=== PATIENT | female | born 1970 | race Caucasian/White ===

== ENCOUNTER → 2016-08-30 | Outpatient (CLI) | payer BC ==
[2016-04-07 08:28] VITALS: BP 93/53
[2016-08-30 07:14] LABS: BASOPHILS % (AUTO) 0.5 % (0.2-1.0); EOSINOPHILS # (AUTO) 0.1 x10^3/uL (0.0-0.2); EOSINOPHILS % (AUTO) 1.8 % (0.9-2.9); HEMOGLOBIN 12.9 g/dL (12.0-16.0); LYMPHOCYTES # (AUTO) 1.9 X10^3/uL (1.3-2.9); LYMPHOCYTES % (AUTO) 35.8 % (21.0-51.0); MEAN CORPUSCULAR HEMOGLOBIN 31.8 pg (27.0-34.0); MEAN CORPUSCULAR HGB CONC 34.7 g/dL (33.0-35.0); MEAN CORPUSCULAR VOLUME 91.6 fL (80.0-100.0); MEAN PLATELET VOLUME 7.8 fL (7.4-11.0); MONOCYTES # (AUTO) 0.3 x10^3/uL (0.3-0.8); MONOCYTES % (AUTO) 6.3 % (0.0-13.0); NEUTROPHILS % (AUTO) 55.6 % (42.0-75.0); PLATELET COUNT 239 X10^3/uL (150.0-450.0); RED BLOOD COUNT 4.04 X10^6/uL (3.5-5.4); WHITE BLOOD COUNT 5.4 X10^3/uL (3.6-10.0)
[2016-08-30 07:21] LABS: ALANINE AMINOTRANSFERASE 35 Units/L (12-78); ALBUMIN 3.4 g/dL (3.4-5.0); ALKALINE PHOSPHATASE 85 Units/L (46-116); ASPARTATE AMINO TRANSFERASE 28 Units/L (15-37); BILIRUBIN,DIRECT 0.12 mg/dL (0-0.2); BLOOD UREA NITROGEN 16 mg/dL (7-18); CALCIUM 8.7 mg/dL (8.5-10.1); CARBON DIOXIDE 27.1 mmol/L (21-32); CHLORIDE 107 mmol/L (98-107); CHOL/HDL RATIO 2.3 (0.0-5.0); CHOLESTEROL 156 mg/dL (0-200); COR NA(FOR HYPERGLY) 141 mmol/L (136-145); CREATININE 0.81 mg/dL (0.55-1.02); GLUCOSE 200 mg/dL (65-99); HDL CHOLESTEROL 67 mg/dL (40-60); SODIUM 139 mmol/L (136-145); TOTAL PROTEIN 6.7 g/dL (6.4-8.2); TRIGLYCERIDES 27 mg/dL (0-150); eGFR BLACK RACES > 60 (>60); eGFR NON BLACK RACES > 60 (>60)
== END ==
LOC: LAB 06:30
PROVIDERS: ATTEND Internal Medicine Cardiovascular Disease
DX: E78.4 Other hyperlipidemia (principal)
CPT/HCPCS: 36415; 80048; 80061; 80076; 85025

== ENCOUNTER → 2016-09-06 | Outpatient (CLI) | payer BC ==
[2016-04-07 08:28] VITALS: BP 93/53
[2016-09-06 10:02] LABS: BASOPHILS % (AUTO) 0.5 % (0.2-1.0); EOSINOPHILS # (AUTO) 0.2 x10^3/uL (0.0-0.2); EOSINOPHILS % (AUTO) 3.6 % (0.9-2.9); HEMATOCRIT 37.3 % (36.0-47.0); HEMOGLOBIN 12.8 g/dL (12.0-16.0); LYMPHOCYTES # (AUTO) 1.8 X10^3/uL (1.3-2.9); LYMPHOCYTES % (AUTO) 34.1 % (21.0-51.0); MEAN CORPUSCULAR HEMOGLOBIN 31.7 pg (27.0-34.0); MEAN CORPUSCULAR HGB CONC 34.4 g/dL (33.0-35.0); MEAN CORPUSCULAR VOLUME 92.2 fL (80.0-100.0); MEAN PLATELET VOLUME 7.7 fL (7.4-11.0); MONOCYTES # (AUTO) 0.4 x10^3/uL (0.3-0.8); MONOCYTES % (AUTO) 7.2 % (0.0-13.0); NEUTROPHILS # (AUTO) 2.8 x10^3/uL (2.2-4.8); NEUTROPHILS % (AUTO) 54.6 % (42.0-75.0); PLATELET COUNT 207 X10^3/uL (150.0-450.0); RED BLOOD COUNT 4.04 X10^6/uL (3.5-5.4); WHITE BLOOD COUNT 5.2 X10^3/uL (3.6-10.0)
[2016-09-06 10:11] LABS: ALANINE AMINOTRANSFERASE 27 Units/L (12-78); ALBUMIN 3.4 g/dL (3.4-5.0); ALKALINE PHOSPHATASE 82 Units/L (46-116); ASPARTATE AMINO TRANSFERASE 19 Units/L (15-37); BILIRUBIN,DIRECT 0.09 mg/dL (0-0.2); BLOOD UREA NITROGEN 21 mg/dL (7-18); CALCIUM 8.7 mg/dL (8.5-10.1); CARBON DIOXIDE 30.9 mmol/L (21-32); CHLORIDE 108 mmol/L (98-107); CHOL/HDL RATIO 2.7 (0.0-5.0); CHOLESTEROL 167 mg/dL (0-200); CREATININE 0.72 mg/dL (0.55-1.02); GLUCOSE 89 mg/dL (65-99); HDL CHOLESTEROL 62 mg/dL (40-60); SODIUM 143 mmol/L (136-145); TOTAL PROTEIN 6.7 g/dL (6.4-8.2); TRIGLYCERIDES 58 mg/dL (0-150); eGFR BLACK RACES > 60 (>60); eGFR NON BLACK RACES > 60 (>60)
== END ==
LOC: LAB 09:38
PROVIDERS: ATTEND Physician Assistant
DX: E78.4 Other hyperlipidemia (principal)
CPT/HCPCS: 36415; 80048; 80061; 80076; 85025

== ENCOUNTER 2021-08-24 11:00 | Observation (INO) ==
[2021-08-24 12:35] LABS: BASOPHILS % (AUTO) 0.4 % (0.2-1.0); EOSINOPHILS % (AUTO) 0.8 % (0.9-2.9); HEMOGLOBIN 13.2 g/dL (12.0-16.0); LYMPHOCYTES # (AUTO) 0.5 X10^3/uL (1.3-2.9); LYMPHOCYTES % (AUTO) 10.3 % (21.0-51.0); MEAN CORPUSCULAR HGB CONC 34.6 g/dL (33.0-35.0); MEAN CORPUSCULAR VOLUME 92.4 fL (80.0-100.0); MEAN PLATELET VOLUME 7.5 fL (7.4-11.0); MONOCYTES # (AUTO) 0.4 x10^3/uL (0.3-0.8); MONOCYTES % (AUTO) 10.1 % (0.0-13.0); NEUTROPHILS # (AUTO) 3.4 x10^3/uL (2.2-4.8); NEUTROPHILS % (AUTO) 78.4 % (42.0-75.0); RED BLOOD COUNT 4.12 X10^6/uL (3.5-5.4); RED CELL DISTRIBUTION WIDTH 12.2 % (11.6-16.5); WHITE BLOOD COUNT 4.4 X10^3/uL (3.6-10.0)
[2021-08-24] MEDS ORDERED: TUSSIONEX PENNKINETIC SUSP PO PRN (12:39)
[2021-08-24] MEDS ORDERED: NovoLIN R (or HumuLIN R) SUBCUT PRN (12:41)
[2021-08-24] MEDS: NS 1,000 ML IV 1,000 ML IV SCH (12:45)
[2021-08-24 12:47] LABS: ALANINE AMINOTRANSFERASE 29 Units/L (12-78); ALBUMIN 3.5 g/dL (3.4-5.0); ALKALINE PHOSPHATASE 92 Units/L (46-116); ASPARTATE AMINO TRANSFERASE 26 Units/L (15-37); BLOOD UREA NITROGEN 6 mg/dL (7-18); CALCIUM 8.3 mg/dL (8.5-10.1); CARBON DIOXIDE 28.6 mmol/L (21-32); CHLORIDE 105 mmol/L (98-107); COR NA(FOR HYPERGLY) 141 mmol/L (136-145); CREATININE 0.79 mg/dL (0.55-1.02); SODIUM 139 mmol/L (136-145); TOTAL PROTEIN 6.6 g/dL (6.4-8.2); eGFR NON BLACK RACES > 60 (>60)
[2021-08-24 12:51] LABS: ABG ALLEN TEST POS; ABG BASE EXCESS 3.7 mmol/L (-2.0-2.0); ABG HCO3 27.7 mmol/L (22-26)
[2021-08-24] MEDS ORDERED: REMDESIVIR 200 MG in NS 250 ML IV 250 ML IV ONE (13:00)
[2021-08-24] MEDS: ZITHROMAX INJ 500 MG VIAL 500 MG in NS 250 ML IV 250 ML IV SCH (13:36)
[2021-08-24] MEDS: ROBITUSSIN DM PO SCH ×3 (13:36→20:49)
[2021-08-24 13:50] VITALS: BMI 37.8
--- NOTE | 2021-08-24 13:55 | DR.H&P ---
H&P - History & Physical for Day of: H&P Date: 08/24/21 - Chief Complaint Chief Complaint: COVID POSITIVE, FEVER, UNCONTROLLED SUGAR, WEAKNESS - History of Present Illness History of Present Illness: PT IS 51 WF DIRECT ADMIT FROM DR KELLER OFFICE WITH COVID 19, FEVER ONSET TUESDAY. PT IS TYPE I, USING INSULIN PUMP, REPORTS UNCONTROLLED SUGAR AND WEAKNESS. PT REPORTS POOR APPETITE. PT TEMP 101 IN OFFICE. PT ADMITTED FOR TREATMENT OF ACUTE ILLNESS. - Past Medical History Past Medical History: Diabetes, Depression, Anxiety - Past Surgical History Surgical History: Cholecystectomy, Hysterectomy - Family History Family Medical History: Diabetes Mellitus - Social History Does patient currently use any type of tobacco product: No Have you used tobacco products in the last 12 months: No Type of Tobacco Use: None Does any household member use tobacco: No Alcohol Use: None Drug Use: None Risks, benefits, and alternatives of opioids discussed: No - Medications Home Medications: promethazine Allergy (Verified 01/30/19 04:03) - Review of Systems Constitutional: Fever, Chills, Sweats, Weakness, Malaise Eyes: Vision Change (CHRONIC VISION IMPAIRMENT) Respiratory: Cough, Wheezing Cardiovascular: No Symptoms Reported Gastrointestinal: Nausea, Diarrhea Genitourinary: No Symptoms Reported Musculoskeletal: Back Pain, Leg Pain, Neck Pain Skin: No Symptoms Reported Neurological: No Symptoms Reported - Physical Exam Vital Signs: Respiratory Rate 20 Blood Pressure [Right Arm] 129/72 Blood Pressure 129/72 O2 Sat by Pulse Oximetry 96 Oriented: Normal Eyes: Normal Ear: Normal Nose: Normal Throat: Normal Respiratory: RLL Diminished, LLL Diminished Cardiovascular: Normal : Normal Auscultation: Bowel Sounds: Normal Palpation: Normal Tenderness: Normal Skin: Decreased Turgur Musculoskeletal: Normal Psychiatric: Anxiety Affect: Angry Speech Pattern: Clear, Appropriate - Assessment/Plan (1) COVID-19 Status: Acute Plan: ADMIT, IV HYDRATION. IV REMDESIVIR. IV ZITHROMAX, BS CONTROL. CXR AND ABG ON ADMISSION. VERIFY HOME MEDICATION (2) Anxiety Status: Chronic (3) Diabetes mellitus type 1 Status: Chronic (4) GERD (gastroesophageal reflux disease) Status: Chronic - Allergies Allergies/Adverse Reactions: Allergies Allergy/AdvReac Type Severity Reaction Status Date / Time promethazine Allergy Verified 01/30/19 04:03
[2021-08-24 14:00] LABS: BILIRUBIN,URINE NEGATIVE (NEGATIVE); BLOOD/HEMOGLOBIN,URINE 1+ (NEGATIVE); GLUCOSE, URINE NEGATIVE (NEGATIVE); KETONES,URINE 1+ (NEGATIVE); LEUKOCYTE ESTERASE ,URINE 1+ (NEGATIVE); NITRITES,URINE NEGATIVE (NEGATIVE); PROTEIN,URINE NEGATIVE (NEGATIVE); UROBILINOGEN,URINE NORMAL (NORMAL)
[2021-08-24 14:04] LABS: APPEARANCE,URINE CLEAR (CLEAR); BACTERIA,URINE TRACE /HPF (NEGATIVE); COLOR,URINE PALE YELLOW (YELLOW); SQUAMOUS EPITHELIAL CELL,UR FEW /HPF (NEGATIVE)
[2021-08-24] MEDS ORDERED: TYLENOL 325 MG TAB PO PRN (16:32)
--- NOTE | 2021-08-24 18:53 | RAD ---
HISTORYCOVID +, COUGH Relevant Clinical InformationSTUDYCHEST, 1 VIEWCOMPARISONFINDINGSThe trachea is midline. The cardiac silhouette is unremarkable. The lungs are clear without focal infiltrate or effusion. The bony thorax is unremarkable.IMPRESSIONNo acute cardiopulmonary findings .Electronically signed by: Felipe Neville (Aug 24, 2021 18:52:04)
[2021-08-24] MEDS: PULMICORT NEB TX 0.5 MG NEB SCH (20:49)
[2021-08-24] MEDS: BROVANA IN SCH (20:49)
[2021-08-24] MEDS: SNACK - Diabetic Appropriate PO SCH (21:23)
[2021-08-25] MEDS: NS 1,000 ML IV 1,000 ML IV SCH ×2 (01:48→16:08)
[2021-08-25 05:45] LABS: BASOPHILS % (AUTO) 0.5 % (0.2-1.0); EOSINOPHILS % (AUTO) 0.9 % (0.9-2.9); HEMATOCRIT 36.3 % (36.0-47.0); HEMOGLOBIN 12.7 g/dL (12.0-16.0); LYMPHOCYTES # (AUTO) 1.2 X10^3/uL (1.3-2.9); LYMPHOCYTES % (AUTO) 35.7 % (21.0-51.0); MEAN CORPUSCULAR HEMOGLOBIN 32.3 pg (27.0-34.0); MEAN CORPUSCULAR VOLUME 92.4 fL (80.0-100.0); MEAN PLATELET VOLUME 7.5 fL (7.4-11.0); MONOCYTES # (AUTO) 0.5 x10^3/uL (0.3-0.8); MONOCYTES % (AUTO) 15.8 % (0.0-13.0); NEUTROPHILS # (AUTO) 1.5 x10^3/uL (2.2-4.8); NEUTROPHILS % (AUTO) 47.1 % (42.0-75.0); RED BLOOD COUNT 3.93 X10^6/uL (3.5-5.4); RED CELL DISTRIBUTION WIDTH 12.2 % (11.6-16.5); WHITE BLOOD COUNT 3.3 X10^3/uL (3.6-10.0)
[2021-08-25 05:46] LABS: ALANINE AMINOTRANSFERASE 25 Units/L (12-78); ALBUMIN 3.2 g/dL (3.4-5.0); ALKALINE PHOSPHATASE 83 Units/L (46-116); ASPARTATE AMINO TRANSFERASE 22 Units/L (15-37); BLOOD UREA NITROGEN 9 mg/dL (7-18); CALCIUM 8.2 mg/dL (8.5-10.1); CARBON DIOXIDE 27.9 mmol/L (21-32); CHLORIDE 107 mmol/L (98-107); COR CA(FOR HYPOALB) 8.8 mg/dL (8.5-10.1); CREATININE 0.66 mg/dL (0.55-1.02); SODIUM 140 mmol/L (136-145); TOTAL PROTEIN 6.2 g/dL (6.4-8.2); eGFR NON BLACK RACES > 60 (>60)
[2021-08-25] MEDS: BROVANA IN SCH ×2 (09:40→21:00)
[2021-08-25] MEDS: PULMICORT NEB TX 0.5 MG NEB SCH ×2 (09:41→21:00)
[2021-08-25] MEDS: REMDESIVIR 100 MG in NS 250 ML IV 250 ML IV SCH (09:45)
[2021-08-25] MEDS: ROBITUSSIN DM PO SCH ×4 (09:45→20:59)
[2021-08-25] MEDS: ZITHROMAX INJ 500 MG VIAL 500 MG in NS 250 ML IV 250 ML IV SCH (09:45)
[2021-08-25] MEDS: LOVENOX INJ 40 MG SYR SC SCH (09:46)
[2021-08-25] MEDS ORDERED: D50W ABBOJECT SYR IV ONE (11:09)
--- NOTE | 2021-08-25 13:27 | PCM.PROG ---
Progress Note - Subjective Subjective: Patient was admitted as per HPI. Patient reports improvement in symptoms in yesterday but continues to have weakness and wheezing. No new concerns at present. Plan for dc home in am. - Past Medical Family Social History Past Med/Fam/Surg Hx: No changes since H&P Allergies: Allergies promethazine Allergy (Verified 01/30/19 04:03) - Review of Systems ROS: No change since H&P - Vital Signs and I&O's Vital Signs: Temperature 98.5 F Pulse Rate [Apical] 80 Pulse Rate 71 Respiratory Rate 18 Blood Pressure [Left Arm] 112/56 Blood Pressure [Right Arm] 116/51 Blood Pressure 129/72 O2 Sat by Pulse Oximetry 96 Intake and Output: Intake & Output 08/22/21 08/23/21 08/24/21 08/25/21 23:59 23:59 23:59 23:59 Intake Total 279 / 279 673 / 673 Balance 279 / 279 673 / 673 - Physical Exam Oriented: Normal Eyes: Normal Ear: Normal Nose: Normal Throat: Normal Respiratory: Generalized, Wheezes Cardiovascular: Normal : Normal Auscultation: Bowel Sounds: Normal Palpation: Normal Tenderness: Normal Skin: Decreased Turgur Musculoskeletal: Normal Psychiatric: Normal Mood Description: Calm Affect: Normal Speech Pattern: Clear, Appropriate - Laboratory and Diagnostics Result Diagrams: 08/25/21 04:59 08/25/21 04:59 Labs: Laboratory WBC 3.3 X10^3/uL (3.6-10.0) L 08/25/21 04:59 RBC 3.93 X10^6/uL (3.5-5.4) 08/25/21 04:59 Hgb 12.7 g/dL (12.0-16.0) 08/25/21 04:59 Hct 36.3 % (36.0-47.0) 08/25/21 04:59 MCV 92.4 fL (80.0-100.0) 08/25/21 04:59 MCH 32.3 pg (27.0-34.0) 08/25/21 04:59 MCHC 35.0 g/dL (33.0-35.0) 08/25/21 04:59 RDW 12.2 % (11.6-16.5) 08/25/21 04:59 Plt Count 160 X10^3/uL (150.0-450.0) 08/25/21 04:59 MPV 7.5 fL (7.4-11.0) 08/25/21 04:59 Neut % (Auto) 47.1 % (42.0-75.0) 08/25/21 04:59 Lymph % (Auto) 35.7 % (21.0-51.0) 08/25/21 04:59 [place] % (Auto) 15.8 % (0.0-13.0) H 08/25/21 04:59 Eos % (Auto) 0.9 % (0.9-2.9) 08/25/21 04:59 Baso % (Auto) 0.5 % (0.2-1.0) 08/25/21 04:59 Neut # (Auto) 1.5 x10^3/uL (2.2-4.8) L 08/25/21 04:59 Lymph # (Auto) 1.2 X10^3/uL (1.3-2.9) L 08/25/21 04:59 [place] # (Auto) 0.5 x10^3/uL (0.3-0.8) 08/25/21 04:59 Eos # (Auto) 0.0 x10^3/uL (0.0-0.2) 08/25/21 04:59 Baso # (Auto) 0.0 X10^3/uL (0.0-0.1) 08/25/21 04:59 Absolute Nucleated RBC 0.1 /100WBC 08/25/21 04:59 Sample Site Rr 08/24/21 12:45 ABG pH 7.460 (7.35-7.45) H 08/24/21 12:45 ABG pCO2 39.0 mmHg (35.0-45.0) 08/24/21 12:45 ABG pO2 78.0 mmHg (80.0-100.0) L 08/24/21 12:45 ABG HCO3 27.7 mmol/L (22-26) H 08/24/21 12:45 ABG O2 Saturation 96.0 % (90-100) 08/24/21 12:45 ABG Base Excess 3.7 mmol/L (-2.0-2.0) H 08/24/21 12:45 Gasper Test Pos 08/24/21 12:45 A-a Gradient 23.0 mmHg 08/24/21 12:45 FiO2 21.0 08/24/21 12:45 Blood Gas Comments Pt saige well cdn 08/24/21 12:45 Sodium 140 mmol/L (136-145) 08/25/21 04:59 Corrected Sodium TNP 08/25/21 04:59 Potassium 3.9 mmol/L (3.5-5.1) 08/25/21 04:59 Chloride 107 mmol/L (98-107) 08/25/21 04:59 Carbon Dioxide 27.9 mmol/L (21-32) 08/25/21 04:59 BUN 9 mg/dL (7-18) 08/25/21 04:59 Creatinine 0.66 mg/dL (0.55-1.02) 08/25/21 04:59 Est GFR (MDRD) Af Amer > 60 (>60) 08/25/21 04:59 Est GFR (MDRD) Non-Af > 60 (>60) 08/25/21 04:59 Glucose 91 mg/dL (65-99) 08/25/21 04:59 POC Glucose (mg/dL) 65 mg/dL (65-99) 08/25/21 11:02 Calcium 8.2 mg/dL (8.5-10.1) L 08/25/21 04:59 Corrected Calcium 8.8 mg/dL (8.5-10.1) 08/25/21 04:59 Total Bilirubin 0.80 mg/dL (0.2-1.0) 08/25/21 04:59 AST 22 Units/L (15-37) 08/25/21 04:59 ALT 25 Units/L (12-78) 08/25/21 04:59 Alkaline Phosphatase 83 Units/L (46-116) 08/25/21 04:59 Total Protein 6.2 g/dL (6.4-8.2) L 08/25/21 04:59 Albumin 3.2 g/dL (3.4-5.0) L 08/25/21 04:59 Globulin 3.0 g/dL (2.5-4.5) 08/25/21 04:59 Albumin/Globulin Ratio 1.1 Ratio (1.1-2.1) 08/25/21 04:59 Specimen Type Clean catch urine 08/24/21 13:30 Urine Color Pale yellow (YELLOW) 08/24/21 13:30 Urine Appearance Clear (CLEAR) 08/24/21 13:30 Urine pH 7.0 (5.0 - 8.0) 08/24/21 13:30 Ur Specific [place] 1.005 (1.000-1.030) 08/24/21 13:30 Urine Protein Negative (NEGATIVE) 08/24/21 13:30 Urine Glucose (UA) Negative (NEGATIVE) 08/24/21 13:30 Urine Ketones 1+ (NEGATIVE) 08/24/21 13:30 Urine Blood 1+ (NEGATIVE) 08/24/21 13:30 Urine Nitrite Negative (NEGATIVE) 08/24/21 13:30 Urine Bilirubin Negative (NEGATIVE) 08/24/21 13:30 Urine Urobilinogen Normal (NORMAL) 08/24/21 13:30 Ur Leukocyte Esterase 1+ (NEGATIVE) 08/24/21 13:30 Urine RBC 3-5 /HPF (0-3) A 08/24/21 13:30 Urine WBC 3-5 /HPF (0-5) 08/24/21 13:30 Ur Squamous Epith Cells Few /HPF (NEGATIVE) 08/24/21 13:30 Urine Bacteria Trace /HPF (NEGATIVE) 08/24/21 13:30 Ur Culture Indicated? No/not indicated 08/24/21 13:30 SARS-CoV-2 (PCR) Positive (NEGATIVE) A 08/24/21 12:31 - Plan (1) Hypoglycemia Status: Acute (2) COVID-19 Status: Acute Plan: IV HYDRATION. IV REMDESIVIR. IV ZITHROMAX, BS CONTROL. CXR AND ABG ON ADMISSION. VERIFY HOME MEDICATION (3) Diabetes mellitus type 1 Status: Chronic Plan: Home meds (4) GERD (gastroesophageal reflux disease) Status: Chronic
[2021-08-25] MEDS: SNACK - Diabetic Appropriate PO SCH (21:45)
[2021-08-26 05:22] LABS: ABG BASE EXCESS 2.6 mmol/L (-2.0-2.0); ABG HCO3 27.2 mmol/L (22-26)
[2021-08-26 05:23] LABS: ABG ALLEN TEST POS
[2021-08-26] MEDS: NS 1,000 ML IV 1,000 ML IV SCH (05:27)
[2021-08-26 05:45] LABS: BASOPHILS % (AUTO) 0.7 % (0.2-1.0); EOSINOPHILS # (AUTO) 0.1 x10^3/uL (0.0-0.2); EOSINOPHILS % (AUTO) 2.6 % (0.9-2.9); HEMATOCRIT 35.5 % (36.0-47.0); HEMOGLOBIN 12.3 g/dL (12.0-16.0); LYMPHOCYTES # (AUTO) 1.1 X10^3/uL (1.3-2.9); LYMPHOCYTES % (AUTO) 39.7 % (21.0-51.0); MEAN CORPUSCULAR HEMOGLOBIN 31.8 pg (27.0-34.0); MEAN CORPUSCULAR HGB CONC 34.5 g/dL (33.0-35.0); MEAN CORPUSCULAR VOLUME 92.2 fL (80.0-100.0); MEAN PLATELET VOLUME 7.7 fL (7.4-11.0); MONOCYTES # (AUTO) 0.4 x10^3/uL (0.3-0.8); MONOCYTES % (AUTO) 12.7 % (0.0-13.0); NEUTROPHILS # (AUTO) 1.3 x10^3/uL (2.2-4.8); NEUTROPHILS % (AUTO) 44.3 % (42.0-75.0); RED BLOOD COUNT 3.85 X10^6/uL (3.5-5.4); RED CELL DISTRIBUTION WIDTH 12.1 % (11.6-16.5); WHITE BLOOD COUNT 2.8 X10^3/uL (3.6-10.0)
--- NOTE | 2021-08-26 06:01 | RAD ---
HISTORYCOVID-19STUDYChest AP [id number]/06/2022FINDINGSThe heart is enlarged. The héctor are normal. The lung porter are free of acute infiltrates. No pleural effusions are identified. Bony thorax is unremarkable.IMPRESSIONNo significant abnormality identifiedElectronically signed by: ELIOT MOON (Aug 26, 2021 05:59:22)
[2021-08-26 06:05] LABS: ALANINE AMINOTRANSFERASE 22 Units/L (12-78); ALKALINE PHOSPHATASE 80 Units/L (46-116); ASPARTATE AMINO TRANSFERASE 23 Units/L (15-37); BLOOD UREA NITROGEN 13 mg/dL (7-18); CALCIUM 8.1 mg/dL (8.5-10.1); CARBON DIOXIDE 24.4 mmol/L (21-32); CHLORIDE 104 mmol/L (98-107); COR CA(FOR HYPOALB) 8.9 mg/dL (8.5-10.1); COR NA(FOR HYPERGLY) 140 mmol/L (136-145); SODIUM 137 mmol/L (136-145); TOTAL PROTEIN 6.1 g/dL (6.4-8.2); eGFR NON BLACK RACES > 60 (>60)
[2021-08-26] MEDS: ROBITUSSIN DM PO SCH ×2 (09:10→13:34)
[2021-08-26] MEDS: REMDESIVIR 100 MG in NS 250 ML IV 250 ML IV SCH (09:11)
[2021-08-26] MEDS: LOVENOX INJ 40 MG SYR SC SCH (09:11)
[2021-08-26] MEDS: PULMICORT NEB TX 0.5 MG NEB SCH (10:30)
[2021-08-26] MEDS: BROVANA IN SCH (10:30)
[2021-08-26] MEDS: ZITHROMAX INJ 500 MG VIAL 500 MG in NS 250 ML IV 250 ML IV SCH (10:34)
[2021-08-26 16:25] VITALS: BP 119/58
--- NOTE | 2021-08-27 11:42 | PCM.DCPLAN ---
Discharge Plan - Discharge Plan Hospital Course: ADMIT DATE 08/24/21 DISCHARGE DATE 08/26/21 ADMIT DIAGNOSIS(1) COVID-19 (2) Anxiety (3) Diabetes mellitus type 1 (4) GERD (gastroesophageal reflux disease) DISCHARGE DIAGNOSIS(1) Hypoglycemia (2) COVID-19 (3) Diabetes mellitus type 1 (4) GERD (gastroesophageal reflux disease) HOSPITAL COURSE PT IS 51 YO WF DIRECT ADMIT FROM DR KELLER OFFICE WITH COVID 19, FEVER ONSET TUESDAY. PT IS TYPE I, USING INSULIN PUMP, REPORTS UNCONTROLLED SUGAR AND WEAKNESS. PT REPORTS POOR APPETITE. PT TEMP 101 IN OFFICE. PT ADMITTED FOR TREATMENT OF ACUTE ILLNESS. CHEST XRAY NEGATIVE FOR PNEUMONIA. ABG WITHIN NORMAL LIMITS. PATIENT WAS TREATED WITH IV FLUIDS, IV ABX, AND REMDESIVIR. PATIENT ALSO CONTINUED INSULIN PUMP TO CONTROL BLOOD SUGAR; BLOOD SUGAR WAS CONTROLLED. PATIENTS SYMPTOMS IMPROVED. PATIENT WAS DISCHARGED HOME WITH PO AN TIBIOTICS AND BREATHING TREATMENTS. PATIENT TO FOLLOW UP IN 1 WEEK WITH PCP. DISCHARGE TIME SPENT >35 MINS ON DISCHARGE. Disposition: 01 HOME, SELF-CARE Condition: Stable Health Concerns: Post Hospitalization: new medications and changes needed to prevent readmission or further decline. Pt educated and given instructions on all concerns. Care Plan Goals: Problem: Pain/Alteration in Comfort Goal: Improve/ Resolve Pain; Achieve Pain Tolerance Instructions: Take pain medications as prescribed. Contact your primary care provider if your pain is unrelieved or worsens. Follow up with primary care provider as directed. Plan of Treatment: Continue with present treatment and follow up plan. Pt is to keep follow up appointment as instructed and take medications as ordered. Prescriptions: New albuterol sulfate 1.25 mg/3 mL Solution For Nebulization 1.25 mg INHALATION Q4-6H PRNQty: 1 RF: 0 Transmission Status: Received by [facility] levofloxacin 250 mg Tablet 250 mg PO DAILY Qty: 7 RF: 0 Transmission Status: Received by [facility] Continued albuterol sulfate 90 mcg/actuation HFA aerosol inhaler 2 puff INHALATION Q6H PRN calcium carbonate-vitamin D3 [Calcium 600 + D(3)] 600 mg-10 mcg (400 unit) Tablet 1 tab PO DAILY cetirizine 10 mg Tablet 10 mg PO DAILY ergocalciferol (vitamin D2) 1,250 mcg (50,000 unit) capsule 1,250 mcg PO QWEEK hydroxychloroquine 200 mg tablet 200 mg PO BID levocetirizine 5 mg tablet 5 mg PO DAILY lisinopril 5 mg tablet 5 mg PO DAILY ondansetron 4 mg Tablet,Disintegrating 4 mg translingual TID PRN pantoprazole 40 mg tablet,delayed release (DR/EC) 40 mg PO DAILY rosuvastatin 5 mg tablet 5 mg PO QHS venlafaxine 37.5 mg capsule,extended release 24hr 37.5 mg PO QAM (DME) lancets [Accu-Chek Fastclix Lancet Drum] misc - Orders to Discharge Patient Discharge Orders: Discharge (Routine); Ordered 08/26/21 Ordered By: NILDA KELLER - Follow ups/Referrals Follow ups/Referrals: KAYLA BARRIOS [Nurse Practitioner] - 09/07/21 11:30 am - Instructions Instructions: Nausea, Adult, Hypoglycemia, COVID-19 Frequently Asked Questions, 10 Things You Can Do to Manage Your COVID-19 Symptoms at Home - [facility] (09/19/2019), COVID-19, Generalized Anxiety Disorder, Adult, Frequently Asked Questions About COVID-19 Vaccination - [facility] (07/15/2020), Nausea, Adult, Easy-to- Read, Supporting Someone With Anxiety, Blood Glucose Monitoring, Adult, COVID- 19: What to Do if You Are Sick - [facility] (03/20/2020) Forms: Excuse From Work or School, Precautions for COVID19, [facility], Patient Portal, Social Distancing Print Language: LITHUANIAN - Patient Education Addl Reference Links: COVID-19 [email or web address] [email or web address]&patientPerson.administrativeGenderCode.c=F&p atientPerson.administrativeGenderCod e.dn=Female&age.v.v=51&age.v.u=a&performer=PROV&informationRecipient=PAT&perform er.languageCode.c=en&mainSearchCriteria.v.d=[id number]&mainSearchCriteria.v.cs=2. [id number]&mainSearchCriteria. v.dn=COVID-19&mainSearchCriteria.v.p5=476.89&mainSearchCriteria.v.cs1=2.16.840.1 .[id number]&mainSearchCriteria.v.dn1=COVID-19&mainSearchCriteria.v.c2=U07.1&ma inSearchCriteria.v.cs2=[id number] .6.90&mainSearchCriteria.v.dn2=COVID-19&y=[id number]
== END 2021-08-26 16:10 | disposition home or self-care (01) ==
LOC: MED/SURG
PROVIDERS: ADMIT Internal Medicine; ATTEND Internal Medicine

== ENCOUNTER 2022-05-11 17:27 | Observation (INO) ==
[2022-05-11] MEDS ORDERED: TESSALON PERLES PO PRN (18:04)
[2022-05-11] MEDS ORDERED: ZOFRAN INJ 4 MG VIAL IVP PRN (18:04)
[2022-05-11] MEDS ORDERED: TUSSIONEX PENNKINETIC SUSP PO PRN (18:04)
--- NOTE | 2022-05-11 18:19 | DR.H&P ---
H&P - History & Physical for Day of: H&P Date: 05/11/22 - Chief Complaint Chief Complaint: CCC, WEAKNESS, WHEEZING - History of Present Illness History of Present Illness: PT IS 51 WF, DIRECT ADMIT FROM DR KELLER OFFICE DUE TO FAILED OUTPT TREAMENT FOR INFLUENZA BRONCHOPNEUMONIA. PT IS TYPE 1 DM, WITH REPORTS OF BEING SICK WITH FEVER, CCC SINCE APR 21. PT WAS INFLUENZA A POSITIVE AND HAS TAKEN A ROUND OF TAMIFLU, ZITHROMAX, HAD IM ROCEPHIN INJECTIONS AND CXR AT [facility] WITHOUT IMPROVEMENT. PT FEELS WEAK AND FATIGUED, REPORTS CANNOT STOP COUGHING. PT ADMITTED FOR TREATMENT AND EVALUATION OF ACUTE ILLNESS. - Past Medical History Past Medical History: Anxiety, Arthritis, Depression, Diabetes, Hypertension Additional Medical History: LUPUS - Past Surgical History Surgical History: Cholecystectomy, Hysterectomy - Family History Family Medical History: Diabetes Mellitus - Social History Does patient currently use any type of tobacco product: No Have you used tobacco products in the last 12 months: No Type of Tobacco Use: None Does any household member use tobacco: No Alcohol Use: None Drug Use: None Risks, benefits, and alternatives of opioids discussed: No - Medications Home Medications: promethazine Allergy (Verified 01/30/19 04:03) IV CONTRAST Adverse Reaction (Uncoded 08/26/21 09:57) - Review of Systems Constitutional: Fever, Weakness Eyes: No Symptoms Reported ENT: No Symptoms Reported Respiratory: Cough, Shortness of Breath, SOB with Excertion, Pleuritic Pain, Wheezing Cardiovascular: Palpitations Gastrointestinal: Nausea, Abdominal Pain Genitourinary: No Symptoms Reported Musculoskeletal: No Symptoms Reported Skin: No Symptoms Reported Neurological: Weakness - Physical Exam Vital Signs: Blood Pressure [Left Arm] 119/58 Oriented: Normal Eyes: Normal Ear: Normal Nose: Normal Throat: Normal Respiratory: RLL Diminished, LLL Diminished Cardiovascular: Normal : Normal Auscultation: Bowel Sounds: Normal Tenderness: Epigastric, Mild Skin: Decreased Turgur Musculoskeletal: Normal Psychiatric: Anxiety Affect: Anxious Speech Pattern: Clear, Appropriate - Assessment/Plan (1) Influenzal bronchopneumonia Status: Acute Plan: ADMIT, RESP PANEL ON ADMISSION, BLOOD AND SPUTUM CULTURES ON ADMISSION. GENTLE IV HYDRATION. STRICT I&Os, IV ATBX THERAPY, RESP THERAPY AND PRN SUPPLEMENTAL O2. BS CONTROL AND BP CONTROL, VERIFY HOME MEDICATIONS. ASSIST WITH INSULIN PUMP, CONFIRM CGM BS WITH BESIDE GLUCOSE AC/HS (2) Insulin pump in place Status: Chronic (3) Diabetes mellitus type 1 Status: Chronic (4) GERD (gastroesophageal reflux disease) Status: Chronic - Allergies Allergies/Adverse Reactions: Allergies Allergy/AdvReac Type Severity Reaction Status Date / Time promethazine Allergy Verified 01/30/19 04:03 IV CONTRAST AdvReac Uncoded 08/26/21 09:57
[2022-05-11 18:38] LABS: BASOPHILS # (AUTO) 0.1 X10^3/uL (0.0-0.1); BASOPHILS % (AUTO) 3.9 % (0.2-1.0); EOSINOPHILS # (AUTO) 0.1 x10^3/uL (0.0-0.2); EOSINOPHILS % (AUTO) 3.3 % (0.9-2.9); HEMATOCRIT 40.5 % (36.0-47.0); HEMOGLOBIN 13.9 g/dL (12.0-16.0); LYMPHOCYTES # (AUTO) 1.2 X10^3/uL (1.3-2.9); LYMPHOCYTES % (AUTO) 33.8 % (21.0-51.0); MEAN CORPUSCULAR HEMOGLOBIN 31.5 pg (27.0-34.0); MEAN CORPUSCULAR HGB CONC 34.2 g/dL (33.0-35.0); MEAN CORPUSCULAR VOLUME 92.1 fL (80.0-100.0); MEAN PLATELET VOLUME 7.5 fL (7.4-11.0); MONOCYTES # (AUTO) 0.3 x10^3/uL (0.3-0.8); MONOCYTES % (AUTO) 7.4 % (0.0-13.0); NEUTROPHILS # (AUTO) 1.9 x10^3/uL (2.2-4.8); NEUTROPHILS % (AUTO) 51.6 % (42.0-75.0); RED CELL DISTRIBUTION WIDTH 12.7 % (11.6-16.5); WHITE BLOOD COUNT 3.7 X10^3/uL (3.6-10.0)
[2022-05-11 18:47] LABS: ALANINE AMINOTRANSFERASE 16 Units/L (12-78); ALBUMIN 3.7 g/dL (3.4-5.0); ALKALINE PHOSPHATASE 91 Units/L (46-116); ASPARTATE AMINO TRANSFERASE 22 Units/L (15-37); BLOOD UREA NITROGEN 8 mg/dL (7-18); CALCIUM 8.8 mg/dL (8.5-10.1); CHLORIDE 104 mmol/L (98-107); COR NA(FOR HYPERGLY) 141 mmol/L (136-145); CREATININE 0.76 mg/dL (0.55-1.02); MAGNESIUM 1.7 mg/dL (2.0-2.9); SODIUM 139 mmol/L (136-145); TOTAL PROTEIN 6.8 g/dL (6.4-8.2); eGFR NON BLACK RACES > 60 (>60)
[2022-05-11 18:53] LABS: SERUM ACETONE NEGATIVE (NEGATIVE)
[2022-05-11] MEDS ORDERED: DUONEB 0.5 MG/3 MG (3 mL) NEB ONE (19:16)
[2022-05-11] MEDS ORDERED: PULMICORT NEB TX 0.5 MG NEB ONE (19:16)
[2022-05-11 19:40] VITALS: BMI 35.2
[2022-05-11] MEDS: PROTONIX TAB 40 MG PO SCH (19:43)
[2022-05-11] MEDS: NS 1,000 ML IV 1,000 ML IV SCH (19:48)
[2022-05-11 20:16] LABS: ABG ALLEN TEST POS; ABG BASE EXCESS 3.9 mmol/L (-2.0-2.0); ABG HCO3 28.5 mmol/L (22-26)
[2022-05-11] MEDS ORDERED: LEXAPRO ONE (20:25)
[2022-05-11 20:27] LABS: BILIRUBIN,URINE NEGATIVE (NEGATIVE); BLOOD/HEMOGLOBIN,URINE NEGATIVE (NEGATIVE); GLUCOSE, URINE NEGATIVE (NEGATIVE); KETONES,URINE NEGATIVE (NEGATIVE); LEUKOCYTE ESTERASE ,URINE 1+ (NEGATIVE); NITRITES,URINE NEGATIVE (NEGATIVE); PROTEIN,URINE 1+ (NEGATIVE); UROBILINOGEN,URINE NORMAL (NORMAL)
[2022-05-11 20:30] LABS: APPEARANCE,URINE SLIGHTLY HAZY (CLEAR); BACTERIA,URINE TRACE /HPF (NEGATIVE); COLOR,URINE YELLOW (YELLOW); RBC,URINE NONE SEEN /HPF (0-3); SQUAMOUS EPITHELIAL CELL,UR FEW /HPF (NEGATIVE)
[2022-05-11] MEDS: ROBITUSSIN DM PO SCH (20:38)
[2022-05-11] MEDS: LEXAPRO PO SCH (20:38)
[2022-05-11] MEDS: LEVAQUIN PREMIX IV 500 MG 500 MG/100 ML BAG IV SCH (20:39)
[2022-05-11] MEDS: XOPENEX 1.25 MG/3 ML NEBULE NEB SCH (20:50)
[2022-05-11] MEDS: PULMICORT NEB TX 0.5 MG NEB SCH (20:50)
[2022-05-11] MEDS ORDERED: TYLENOL 325 MG TAB PO PRN (22:57)
[2022-05-11] MEDS: MAGNESIUM SULFATE 1 GRAM/100 mL PREMIX 1 G/100 ML BAG IV PRN (23:37)
[2022-05-12] MEDS: MAGNESIUM SULFATE 1 GRAM/100 mL PREMIX 1 G/100 ML BAG IV PRN (01:36)
[2022-05-12] MEDS: XOPENEX 1.25 MG/3 ML NEBULE NEB SCH ×3 (05:12→20:00)
[2022-05-12 05:45] LABS: BASOPHILS % (AUTO) 0.8 % (0.2-1.0); EOSINOPHILS # (AUTO) 0.1 x10^3/uL (0.0-0.2); EOSINOPHILS % (AUTO) 3.6 % (0.9-2.9); HEMATOCRIT 36.4 % (36.0-47.0); HEMOGLOBIN 12.4 g/dL (12.0-16.0); LYMPHOCYTES # (AUTO) 1.6 X10^3/uL (1.3-2.9); LYMPHOCYTES % (AUTO) 41.1 % (21.0-51.0); MEAN CORPUSCULAR HEMOGLOBIN 31.2 pg (27.0-34.0); MEAN CORPUSCULAR HGB CONC 33.9 g/dL (33.0-35.0); MEAN CORPUSCULAR VOLUME 91.8 fL (80.0-100.0); MEAN PLATELET VOLUME 7.4 fL (7.4-11.0); MONOCYTES # (AUTO) 0.3 x10^3/uL (0.3-0.8); MONOCYTES % (AUTO) 8.7 % (0.0-13.0); NEUTROPHILS # (AUTO) 1.8 x10^3/uL (2.2-4.8); NEUTROPHILS % (AUTO) 45.8 % (42.0-75.0); RED BLOOD COUNT 3.97 X10^6/uL (3.5-5.4); RED CELL DISTRIBUTION WIDTH 12.8 % (11.6-16.5); WHITE BLOOD COUNT 3.8 X10^3/uL (3.6-10.0)
[2022-05-12 05:56] LABS: ALANINE AMINOTRANSFERASE 17 Units/L (12-78); ALBUMIN 3.1 g/dL (3.4-5.0); ALKALINE PHOSPHATASE 79 Units/L (46-116); ASPARTATE AMINO TRANSFERASE 18 Units/L (15-37); BLOOD UREA NITROGEN 12 mg/dL (7-18); CALCIUM 8.4 mg/dL (8.5-10.1); CARBON DIOXIDE 28.1 mmol/L (21-32); CHLORIDE 105 mmol/L (98-107); COR CA(FOR HYPOALB) 9.1 mg/dL (8.5-10.1); COR NA(FOR HYPERGLY) 142 mmol/L (136-145); CREATININE 0.85 mg/dL (0.55-1.02); MAGNESIUM 2.1 mg/dL (2.0-2.9); SODIUM 138 mmol/L (136-145); TOTAL PROTEIN 5.9 g/dL (6.4-8.2); eGFR NON BLACK RACES > 60 (>60)
--- NOTE | 2022-05-12 07:26 | RAD ---
HISTORYbronchitisSTUDYCHEST, PA/LAT [id number]/2023.TECHNIQUE2 views of the chestFINDINGSThe cardiac and mediastinal contours are within normal limits. The lungs are clear without focal consolidation or segmental collapse. No pleural effusion or pneumothorax.IMPRESSIONNo acute pulmonary process radiographically.Electronically signed by: Tone Ruano (May 12, 2022 07:25:39)
[2022-05-12] MEDS ORDERED: LEXAPRO ONE (07:47)
[2022-05-12] MEDS: PULMICORT NEB TX 0.5 MG NEB SCH ×2 (08:30→20:00)
[2022-05-12] MEDS: PROTONIX TAB 40 MG PO SCH (08:49)
[2022-05-12] MEDS: ROBITUSSIN DM PO SCH ×4 (08:49→21:22)
[2022-05-12] MEDS: LEXAPRO PO SCH (08:49)
[2022-05-12] MEDS: NS 1,000 ML IV 1,000 ML IV SCH ×3 (08:50→22:30)
[2022-05-12 09:02] LABS: AMYLASE 25 Units/L (25-115); LIPASE 29 Units/L (73-393)
[2022-05-12] MEDS: ZESTRIL TAB 5 MG PO SCH (10:30)
[2022-05-12] MEDS: LOVENOX INJ 40 MG SYR SC SCH (11:00)
[2022-05-12] MEDS ORDERED: PEPCID 20 MG VIAL IVP ONE (18:14)
--- NOTE | 2022-05-12 18:18 | PCM.PROG ---
Progress Note - Progress Note for Day of Date of Exam: 05/12/22 - Subjective Subjective: PT IS 51 WF, DIRECT ADMIT WITH FAILED OUPT BRONCHOPNEUMONIA FOLLOWING INFLUENZA A. PT IS CURRENTLY ON IV HYDRATION, IV LEVAQUIN AND DUO NEBS. PT REPORTS LEFT UPPER ABDOMINAL TENDERNESS AND EPIGASTRIC TENDERNESS ON EXAM THIS AM. "COULD BE PULLED SOMETHING FROM COUGHING" REPORTS PT. PT HAS PMH OF TYPE 1 DM AND GERD. AMYLASE AND LIPASE LABS WERE ADDED AND ABD SERIES TO XRAY. PT STARTED ON IV PEPCID AND IV PROTONIX BID. PLAN TO REPEAT AM CBC AND CMP. PT DENIES CHEST PAIN. CXR AND LABS REVIEWED WITH PT THIS AM. - Past Medical Family Social History Past Med/Fam/Surg Hx: No changes since H&P Allergies: Allergies gluten Allergy (Verified 05/11/22 19:42) promethazine Allergy (Verified 01/30/19 04:03) shellfish derived Adverse Reaction (Severe, Verified 05/11/22 19:42) ANAPHALEXIS REACTION IV CONTRAST Adverse Reaction (Severe, Uncoded 05/11/22 19:41) ANAPHALEXIS REACTION - Review of Systems ROS: No change since H&P - Vital Signs and I&O's Vital Signs: Temperature 98.1 F Pulse Rate [Brachial] 76 Pulse Rate 67 Respiratory Rate 18 Blood Pressure [Right Arm] 116/56 Blood Pressure [Left Arm] 119/58 Blood Pressure 129/72 O2 Sat by Pulse Oximetry 97 Intake and Output: Intake & Output 05/10/22 05/11/22 05/12/22 05/13/22 11:59 11:59 11:59 11:59 Intake Total 1630 / 1630 740 / 740 Balance 1630 / 1630 740 / 740 - Physical Exam Oriented: Normal Eyes: Normal Ear: Normal Nose: Normal Throat: Normal Respiratory: Diminished, Rhonchi Cardiovascular: Normal : Normal Auscultation: Bowel Sounds: Normal Tenderness: LUQ, Epigastric, Mild Skin: Decreased Turgur Musculoskeletal: Normal Psychiatric: Anxiety Affect: Anxious Speech Pattern: Clear, Appropriate - Laboratory and Diagnostics Result Diagrams: 05/12/22 05:30 05/12/22 05:30 Labs: Laboratory WBC 3.8 X10^3/uL (3.6-10.0) 05/12/22 05:30 RBC 3.97 X10^6/uL (3.5-5.4) 05/12/22 05:30 Hgb 12.4 g/dL (12.0-16.0) 05/12/22 05:30 Hct 36.4 % (36.0-47.0) 05/12/22 05:30 MCV 91.8 fL (80.0-100.0) 05/12/22 05:30 MCH 31.2 pg (27.0-34.0) 05/12/22 05:30 MCHC 33.9 g/dL (33.0-35.0) 05/12/22 05:30 RDW 12.8 % (11.6-16.5) 05/12/22 05:30 Plt Count 177 X10^3/uL (150.0-450.0) 05/12/22 05:30 MPV 7.4 fL (7.4-11.0) 05/12/22 05:30 Neut % (Auto) 45.8 % (42.0-75.0) 05/12/22 05:30 Lymph % (Auto) 41.1 % (21.0-51.0) 05/12/22 05:30 [place] % (Auto) 8.7 % (0.0-13.0) 05/12/22 05:30 Eos % (Auto) 3.6 % (0.9-2.9) H 05/12/22 05:30 Baso % (Auto) 0.8 % (0.2-1.0) 05/12/22 05:30 Neut # (Auto) 1.8 x10^3/uL (2.2-4.8) L 05/12/22 05:30 Lymph # (Auto) 1.6 X10^3/uL (1.3-2.9) 05/12/22 05:30 [place] # (Auto) 0.3 x10^3/uL (0.3-0.8) 05/12/22 05:30 Eos # (Auto) 0.1 x10^3/uL (0.0-0.2) 05/12/22 05:30 Baso # (Auto) 0.0 X10^3/uL (0.0-0.1) 05/12/22 05:30 Absolute Nucleated RBC 0.0 /100WBC 05/12/22 05:30 Sample Site Lr 05/11/22 18:30 ABG pH 7.440 (7.35-7.45) 05/11/22 18:30 ABG pCO2 42.0 mmHg (35.0-45.0) 05/11/22 18:30 ABG pO2 79.0 mmHg (80.0-100.0) L 05/11/22 18:30 ABG HCO3 28.5 mmol/L (22-26) H 05/11/22 18:30 ABG O2 Saturation 96.0 % (90-100) 05/11/22 18:30 ABG Base Excess 3.9 mmol/L (-2.0-2.0) H 05/11/22 18:30 Gasper Test Pos 05/11/22 18:30 A-a Gradient 18.0 mmHg 05/11/22 18:30 FiO2 21.0 05/11/22 18:30 Blood Gas Comments Sergey well sw 05/11/22 18:30 Sodium 138 mmol/L (136-145) 05/12/22 05:30 Corrected Sodium 142 mmol/L (136-145) 05/12/22 05:30 Potassium 4.1 mmol/L (3.5-5.1) 05/12/22 05:30 Chloride 105 mmol/L (98-107) 05/12/22 05:30 Carbon Dioxide 28.1 mmol/L (21-32) 05/12/22 05:30 BUN 12 mg/dL (7-18) 05/12/22 05:30 Creatinine 0.85 mg/dL (0.55-1.02) 05/12/22 05:30 Est GFR (MDRD) Af Amer > 60 (>60) 05/12/22 05:30 Est GFR (MDRD) Non-Af > 60 (>60) 05/12/22 05:30 Glucose 248 mg/dL (65-99) H 05/12/22 05:30 Calcium 8.4 mg/dL (8.5-10.1) L 05/12/22 05:30 Corrected Calcium 9.1 mg/dL (8.5-10.1) 05/12/22 05:30 Magnesium 2.1 mg/dL (2.0-2.9) 05/12/22 05:30 Total Bilirubin 0.90 mg/dL (0.2-1.0) 05/12/22 05:30 AST 18 Units/L (15-37) 05/12/22 05:30 ALT 17 Units/L (12-78) 05/12/22 05:30 Alkaline Phosphatase 79 Units/L (46-116) 05/12/22 05:30 Total Protein 5.9 g/dL (6.4-8.2) L 05/12/22 05:30 Albumin 3.1 g/dL (3.4-5.0) L 05/12/22 05:30 Globulin 2.8 g/dL (2.5-4.5) 05/12/22 05:30 Albumin/Globulin Ratio 1.1 Ratio (1.1-2.1) 05/12/22 05:30 Amylase 25 Units/L (25-115) 05/12/22 05:30 Lipase 29 Units/L (73-393) L 05/12/22 05:30 Specimen Type Clean catch urine 05/11/22 20:04 Urine Color Yellow (YELLOW) 05/11/22 20:04 Urine Appearance Slightly hazy (CLEAR) 05/11/22 20:04 Urine pH 8.0 (5.0 - 8.0) 05/11/22 20:04 Ur Specific [place] 1.010 (1.000-1.030) 05/11/22 20:04 Urine Protein 1+ (NEGATIVE) 05/11/22 20:04 Urine Glucose (UA) Negative (NEGATIVE) 05/11/22 20:04 Urine Ketones Negative (NEGATIVE) 05/11/22 20:04 Urine Blood Negative (NEGATIVE) 05/11/22 20:04 Urine Nitrite Negative (NEGATIVE) 05/11/22 20:04 Urine Bilirubin Negative (NEGATIVE) 05/11/22 20:04 Urine Acetone Negative (NEGATIVE) 05/11/22 20:04 Urine Urobilinogen Normal (NORMAL) 05/11/22 20:04 Ur Leukocyte Esterase 1+ (NEGATIVE) 05/11/22 20:04 Urine RBC None seen /HPF (0-3) 05/11/22 20:04 Urine WBC 3-5 /HPF (0-5) 05/11/22 20:04 Ur Squamous Epith Cells Few /HPF (NEGATIVE) 05/11/22 20:04 Urine Bacteria Trace /HPF (NEGATIVE) 05/11/22 20:04 Ur Culture Indicated? No/not indicated 05/11/22 20:04 Acetone, Semi-Quant Negative (NEGATIVE) 05/11/22 18:18 SARS-CoV-2 (PCR) Negative (NEGATIVE) 05/11/22 20:04 Influenza Type A (PCR) Negative (NEGATIVE) 05/11/22 20:04 Influenza Type B (PCR) Negative (NEGATIVE) 05/11/22 20:04 RSV (PCR) Negative (NEGATIVE) 05/11/22 20:04 - Plan (1) Influenzal bronchopneumonia Status: Acute Plan: RESP PANEL ON ADMISSION, BLOOD AND SPUTUM CULTURES ON ADMISSION. GENTLE IV HYDRATION. STRICT I&Os, IV ATBX THERAPY, RESP THERAPY AND PRN SUPPLEMENTAL O2. BS CONTROL AND BP CONTROL, VERIFY HOME MEDICATIONS. ASSIST WITH INSULIN PUMP, CONFIRM CGM BS WITH BESIDE GLUCOSE AC/HS (2) Insulin pump in place Status: Chronic (3) Diabetes mellitus type 1 Status: Chronic (4) GERD (gastroesophageal reflux disease) Status: Chronic
[2022-05-12] MEDS: LEVAQUIN PREMIX IV 500 MG 500 MG/100 ML BAG IV SCH (21:22)
[2022-05-12] MEDS: PROTONIX INJ 40 MG VIAL IVP SCH (21:22)
[2022-05-13 05:17] LABS: BASOPHILS % (AUTO) 0.5 % (0.2-1.0); EOSINOPHILS # (AUTO) 0.1 x10^3/uL (0.0-0.2); EOSINOPHILS % (AUTO) 3.1 % (0.9-2.9); HEMATOCRIT 33.2 % (36.0-47.0); HEMOGLOBIN 11.4 g/dL (12.0-16.0); LYMPHOCYTES # (AUTO) 1.4 X10^3/uL (1.3-2.9); MEAN CORPUSCULAR HEMOGLOBIN 31.7 pg (27.0-34.0); MEAN CORPUSCULAR HGB CONC 34.3 g/dL (33.0-35.0); MEAN CORPUSCULAR VOLUME 92.3 fL (80.0-100.0); MEAN PLATELET VOLUME 7.8 fL (7.4-11.0); MONOCYTES # (AUTO) 0.3 x10^3/uL (0.3-0.8); MONOCYTES % (AUTO) 8.4 % (0.0-13.0); NEUTROPHILS # (AUTO) 2.1 x10^3/uL (2.2-4.8); RED BLOOD COUNT 3.59 X10^6/uL (3.5-5.4); RED CELL DISTRIBUTION WIDTH 12.7 % (11.6-16.5)
[2022-05-13 05:30] LABS: ALANINE AMINOTRANSFERASE 12 Units/L (12-78); ALBUMIN 2.9 g/dL (3.4-5.0); ALKALINE PHOSPHATASE 70 Units/L (46-116); ASPARTATE AMINO TRANSFERASE 15 Units/L (15-37); BLOOD UREA NITROGEN 11 mg/dL (7-18); CALCIUM 8.4 mg/dL (8.5-10.1); CARBON DIOXIDE 28.3 mmol/L (21-32); CHLORIDE 108 mmol/L (98-107); COR CA(FOR HYPOALB) 9.3 mg/dL (8.5-10.1); COR NA(FOR HYPERGLY) 146 mmol/L (136-145); CREATININE 0.95 mg/dL (0.55-1.02); SODIUM 143 mmol/L (136-145); TOTAL PROTEIN 5.6 g/dL (6.4-8.2); eGFR NON BLACK RACES > 60 (>60)
[2022-05-13] MEDS: XOPENEX 1.25 MG/3 ML NEBULE NEB SCH (06:00)
--- NOTE | 2022-05-13 07:23 | RAD ---
HISTORYAbdominal pain, pneumoniaSTUDYACUTE ABDOMEN [id number]/21/2023FINDINGSHeart is mildly enlarged. No congestive heart failure is noted. No acute alveolar infiltrates or pleural effusions are identified. The abdominal gas pattern is nonspecific and nonobstructive. No abnormal masses or abnormal calcifications are identified. No pneumoperitoneum is identified. Regional skeleton is intact.IMPRESSIONMild cardiomegaly without congestive heart failureLungs clearUnremarkable abdomenElectronically signed by: ELIOT MOON (May 13, 2022 07:21:22)
[2022-05-13] MEDS: PULMICORT NEB TX 0.5 MG NEB SCH (09:30)
[2022-05-13] MEDS ORDERED: LEXAPRO ONE (09:54)
[2022-05-13] MEDS: LEXAPRO PO SCH (09:59)
[2022-05-13] MEDS: ZESTRIL TAB 5 MG PO SCH (10:00)
[2022-05-13] MEDS: PROTONIX INJ 40 MG VIAL IVP SCH (10:01)
[2022-05-13] MEDS: LOVENOX INJ 40 MG SYR SC SCH (10:01)
[2022-05-13] MEDS: ROBITUSSIN DM PO SCH (10:01)
[2022-05-13 16:47] VITALS: BP 131/63
== END 2022-05-13 13:05 | disposition home or self-care (01) ==
LOC: MED/SURG
PROVIDERS: ADMIT Internal Medicine; ATTEND Internal Medicine
DX: M32.8 Other forms of systemic lupus erythematosus; Z20.822 Contact with and (suspected) exposure to COVID-19; B97.89 Other viral agents as the cause of diseases classified elsewhere; B96.3 Hemophilus influenzae [H. influenzae] as the cause of diseases classified elsewhere; R53.1 Weakness; J10.08 Influenza due to other identified influenza virus with other specified pneumonia; K21.9 Gastro-esophageal reflux disease without esophagitis; J18.0 Bronchopneumonia, unspecified organism; E10.65 Type 1 diabetes mellitus with hyperglycemia

== ENCOUNTER 2022-11-02 12:15 | Observation (INO) ==
[2022-11-02] MEDS ORDERED: SOLU-Medrol 40 MG VIAL IVP ONE (13:47)
[2022-11-02 14:11] VITALS: BMI 39.2
[2022-11-02] MEDS: PROTONIX INJ 40 MG VIAL IVP SCH (14:34)
[2022-11-02 14:37] LABS: ALANINE AMINOTRANSFERASE 31 Units/L (12-78); ALBUMIN 3.7 g/dL (3.4-5.0); ALKALINE PHOSPHATASE 90 Units/L (46-116); ASPARTATE AMINO TRANSFERASE 30 Units/L (15-37); BLOOD UREA NITROGEN 14 mg/dL (7-18); CALCIUM 8.7 mg/dL (8.5-10.1); CARBON DIOXIDE 24.2 mmol/L (21-32); CHLORIDE 104 mmol/L (98-107); COR NA(FOR HYPERGLY) 139 mmol/L (136-145); CREATININE 0.76 mg/dL (0.55-1.02); GLUCOSE 148 mg/dL (65-99); POTASSIUM 3.9 mmol/L (3.5-5.1); SODIUM 138 mmol/L (136-145); TOTAL PROTEIN 6.8 g/dL (6.4-8.2); eGFR NON BLACK RACES > 60 (>60)
[2022-11-02 14:54] LABS: BASOPHILS % (AUTO) 0.5 % (0.2-1.0); EOSINOPHILS # (AUTO) 0.1 x10^3/uL (0.0-0.2); EOSINOPHILS % (AUTO) 1.8 % (0.9-2.9); HEMOGLOBIN 14.8 g/dL (12.0-16.0); LYMPHOCYTES # (AUTO) 1.7 X10^3/uL (1.3-2.9); LYMPHOCYTES % (AUTO) 40.3 % (21.0-51.0); MEAN CORPUSCULAR HEMOGLOBIN 31.4 pg (27.0-34.0); MEAN CORPUSCULAR HGB CONC 34.5 g/dL (33.0-35.0); MEAN CORPUSCULAR VOLUME 91.1 fL (80.0-100.0); MEAN PLATELET VOLUME 7.8 fL (7.4-11.0); MONOCYTES # (AUTO) 0.3 x10^3/uL (0.3-0.8); MONOCYTES % (AUTO) 8.3 % (0.0-13.0); NEUTROPHILS % (AUTO) 49.1 % (42.0-75.0); PLATELET COUNT 199 X10^3/uL (150.0-450.0); RED BLOOD COUNT 4.72 X10^6/uL (3.5-5.4); RED CELL DISTRIBUTION WIDTH 12.5 % (11.6-16.5); WHITE BLOOD COUNT 4.1 X10^3/uL (3.6-10.0)
[2022-11-02] MEDS: ROBITUSSIN DM PO SCH ×2 (16:19→20:37)
[2022-11-02] MEDS: DUONEB 0.5 MG/3 MG (3 mL) NEB SCH ×3 (17:16→20:30)
[2022-11-02] MEDS: PULMICORT NEB TX 0.5 MG NEB SCH ×2 (17:20→20:30)
[2022-11-02 17:55] LABS: BILIRUBIN,URINE NEGATIVE (NEGATIVE); BLOOD/HEMOGLOBIN,URINE 1+ (NEGATIVE); GLUCOSE, URINE NEGATIVE (NEGATIVE); KETONES,URINE NEGATIVE (NEGATIVE); LEUKOCYTE ESTERASE ,URINE 1+ (NEGATIVE); NITRITES,URINE NEGATIVE (NEGATIVE); PROTEIN,URINE 1+ (NEGATIVE); UROBILINOGEN,URINE 1+ (NORMAL)
[2022-11-02 18:05] LABS: APPEARANCE,URINE HAZY (CLEAR); BACTERIA,URINE TRACE /HPF (NEGATIVE); COLOR,URINE YELLOW (YELLOW); HYALINE CASTS, URINE FEW /LPF (NEGATIVE); RBC,URINE 0-2 /HPF (0-3); SQUAMOUS EPITHELIAL CELL,UR MANY /HPF (NEGATIVE)
--- NOTE | 2022-11-02 18:07 | DR.H&P ---
H&P - History & Physical for Day of: H&P Date: 11/02/22 - Chief Complaint Chief Complaint: FLU, CCC, WHEEZING - History of Present Illness History of Present Illness: PT IS 52 WF, TYPE I DM, DIRECT ADMIT FROM DR GALLARDO OFFICE WITH ACUTE BRONCHITIS, FAILED OUTPT THERARPY AND HISTORY OF INFLUENZA A. PT CO ONSET ~ONE WEEK AGO, PT TESTED POSITIVE FOR FLU AT DR KELLER OFFICE. PT WAS STARTED ON TAMIFLU AND TOOK ZITHROMAX WITH CONTINUED SOB, CCC AND INCREASED WHEEZING. PT HAS PMH OF ASTHMA AND HAS BEEN USING ALBUTEROL TID. PT HAS AN INSULIN PUMP AND REPORTS BS "HAVE BEEN HIGHER". PT ADMITTED FOR TREATMENT AND EVALUATION OF ACUTE ILLNESS - Past Medical History Past Medical History: Anxiety, Arthritis, Depression, Diabetes, Hypertension Additional Medical History: LUPUS - Past Surgical History Surgical History: Cholecystectomy, Hysterectomy - Family History Family Medical History: Cancer, Hypertension - Social History Does patient currently use any type of tobacco product: No Have you used tobacco products in the last 12 months: No Type of Tobacco Use: None Does any household member use tobacco: No Alcohol Use: None Drug Use: None - Review of Systems Constitutional: Fever, Weakness Eyes: No Symptoms Reported ENT: No Symptoms Reported Respiratory: Cough, Shortness of Breath, Wheezing Cardiovascular: Chest Pain Gastrointestinal: Nausea Genitourinary: No Symptoms Reported Musculoskeletal: No Symptoms Reported Skin: No Symptoms Reported Neurological: No Symptoms Reported - Physical Exam Vital Signs: Vital Signs Temperature 98.3 F Temperature 98.2 F Pulse Rate [Left Brachial] 70 Pulse Rate [Left Brachial] 78 Pulse Rate 70 Respiratory Rate 18 Respiratory Rate 20 Respiratory Rate 18 Blood Pressure [Left Arm] 132/63 Blood Pressure [Left Arm] 164/78 Blood Pressure 129/72 O2 Sat by Pulse Oximetry 96 O2 Sat by Pulse Oximetry 96 O2 Sat by Pulse Oximetry 96 Oriented: Normal Eyes: Blurred Vision (CHRONIC VISION IMPAIRMENT) Ear: Normal Nose: Normal Throat: Normal Respiratory: Wheezes Throughout Cardiovascular: Tachycardia. negative: Edema : Normal Auscultation: Bowel Sounds: Normal Palpation: Normal Tenderness: Normal Skin: Decreased Turgur Musculoskeletal: Normal Psychiatric: Anxiety Affect: Anxious Speech Pattern: Clear, Appropriate - Assessment/Plan (1) Influenzal bronchopneumonia Status: Acute Plan: ADMIT, IV HYDRATION. IV ATBX, BS CONTROL. VERIFY HOME MEDICATION. CXR ON ADMISSION, IV SOLU MEDROL 40 X1 DOSE, WE WILL SEE HOW HER BS TOLERATED STEROIDS TODAY. REPEAT AM CXR (2) Diabetes mellitus type 1 Status: Chronic (3) Insulin pump in place Status: Chronic (4) Anxiety Status: Chronic - Allergies Allergies/Adverse Reactions: Allergies Allergy/AdvReac Type Severity Reaction Status Date / Time gluten Allergy Verified 05/11/22 19:42 promethazine Allergy Verified 01/30/19 04:03 shellfish derived AdvReac Severe ANAPHALEXIS Verified 05/11/22 19:42 REACTION IV CONTRAST AdvReac Severe ANAPHALEXIS Uncoded 05/11/22 19:41 REACTION - Medications Home Medications: Home Medications Medication Instructions Recorded Confirmed ergocalciferol (vitamin D2) 1,250 1,250 mcg PO QAM 05/11/22 11/02/22 mcg (50,000 unit) capsule (Vitamin D2) escitalopram oxalate 10 mg tablet 1 tab PO QPM 05/11/22 11/02/22 hydroxychloroquine 200 mg tablet 200 mg PO QAM 05/11/22 11/02/22 hydroxyzine HCl 10 mg tablet 1 tab PO QPM 05/11/22 11/02/22 levocetirizine 5 mg tablet 1 tab PO QPM 05/11/22 11/02/22 lisinopril 5 mg tablet 1 tab PO QAM Kidney Disease 05/11/22 11/02/22 montelukast 10 mg tablet 10 tab PO QPM 05/11/22 11/02/22 pantoprazole 40 mg tablet,delayed 1 tab PO QPM indigestion 05/11/22 11/02/22 release rosuvastatin 5 mg tablet 1 tab PO QPM 05/11/22 11/02/22 chlorpheniramine maleate 4 mg 4 mg PO Q8H 11/02/22 11/02/22 tablet (Aller-Chlor) tizanidine 4 mg tablet 4 mg PO QDAY PRN 11/02/22 11/02/22 tizanidine 4 mg tablet 4 mg PO QDAY PRN 11/02/22 11/02/22
[2022-11-02] MEDS ORDERED: LEXAPRO ONE (20:17)
[2022-11-02] MEDS: SINGULAIR TAB 10 MG PO SCH (20:35)
[2022-11-02] MEDS: LEXAPRO PO SCH (20:36)
[2022-11-02] MEDS: NS 1,000 ML IV 1,000 ML IV SCH (20:37)
[2022-11-02] MEDS ORDERED: PROTONIX TAB 40 MG PO SCH (21:00)
[2022-11-02] MEDS: ATARAX TAB 10 MG PO SCH (21:36)
--- NOTE | 2022-11-02 23:10 | RAD ---
HISTORYAB, INFLUENZA Relevant Clinical InformationSTUDYCHEST, SILVIA/LAT [id number]/2023.FINDINGSThe trachea is midline. The cardiac silhouette is unremarkable. The lungs are clear without focal infiltrate or effusion. The bony thorax is unremarkable.IMPRESSIONNo acute cardiopulmonary findings .Electronically signed by: Felipe Neville (Nov 02, 2022 23:08:53)
[2022-11-03] MEDS: TYLENOL 325 MG TAB PO PRN (00:15)
[2022-11-03 06:50] LABS: BASOPHILS % (AUTO) 0.3 % (0.2-1.0); HEMOGLOBIN 13.3 g/dL (12.0-16.0); LYMPHOCYTES # (AUTO) 1.4 X10^3/uL (1.3-2.9); LYMPHOCYTES % (AUTO) 21.5 % (21.0-51.0); MEAN CORPUSCULAR HGB CONC 34.1 g/dL (33.0-35.0); MEAN CORPUSCULAR VOLUME 91.1 fL (80.0-100.0); MEAN PLATELET VOLUME 7.9 fL (7.4-11.0); MONOCYTES # (AUTO) 0.4 x10^3/uL (0.3-0.8); MONOCYTES % (AUTO) 6.3 % (0.0-13.0); NEUTROPHILS # (AUTO) 4.5 x10^3/uL (2.2-4.8); NEUTROPHILS % (AUTO) 71.9 % (42.0-75.0); PLATELET COUNT 208 X10^3/uL (150.0-450.0); RED BLOOD COUNT 4.29 X10^6/uL (3.5-5.4); RED CELL DISTRIBUTION WIDTH 12.7 % (11.6-16.5); WHITE BLOOD COUNT 6.3 X10^3/uL (3.6-10.0)
[2022-11-03 07:09] LABS: ALANINE AMINOTRANSFERASE 29 Units/L (12-78); ALBUMIN 3.4 g/dL (3.4-5.0); ALKALINE PHOSPHATASE 81 Units/L (46-116); ASPARTATE AMINO TRANSFERASE 23 Units/L (15-37); BLOOD UREA NITROGEN 18 mg/dL (7-18); CALCIUM 8.1 mg/dL (8.5-10.1); CARBON DIOXIDE 25.5 mmol/L (21-32); CHLORIDE 103 mmol/L (98-107); COR NA(FOR HYPERGLY) 140 mmol/L (136-145); CREATININE 0.94 mg/dL (0.55-1.02); GLUCOSE 265 mg/dL (65-99); POTASSIUM 4.3 mmol/L (3.5-5.1); SODIUM 136 mmol/L (136-145); TOTAL PROTEIN 6.3 g/dL (6.4-8.2); eGFR NON BLACK RACES > 60 (>60)
[2022-11-03] MEDS: PULMICORT NEB TX 0.5 MG NEB SCH ×2 (08:16→22:00)
[2022-11-03] MEDS: DUONEB 0.5 MG/3 MG (3 mL) NEB SCH ×4 (08:16→22:00)
[2022-11-03] MEDS: ZESTRIL TAB 5 MG PO SCH (08:29)
[2022-11-03] MEDS: PROTONIX INJ 40 MG VIAL IVP SCH (08:29)
[2022-11-03] MEDS: ROBITUSSIN DM PO SCH ×4 (08:29→20:16)
[2022-11-03] MEDS: NS 1,000 ML IV 1,000 ML IV SCH ×2 (08:34→20:17)
--- NOTE | 2022-11-03 18:25 | PCM.PROG ---
Progress Note - Progress Note for Day of Date of Exam: 11/03/22 - Subjective Subjective: PT IS 52 WF ADMITTED WITH COMPLICATIONS FOLLOWING INFLUENZA. PT IS CURRENTLY ON IV ATBX, IV HDYRATION, BS AND BP CONTROL. PT HAD CXR ON ADMISSION WITHOUT PNEUMONIA. PT HAD CONTINUED COUGH AND BOTH MILD INSPIRATORY WHEEZES AND DIFFUSE UPPER EXPIRATORY WHEEZING. PT DENIES CHEST PAIN. - Past Medical Family Social History Past Med/Fam/Surg Hx: No changes since H&P Allergies: Allergies gluten Allergy (Verified 05/11/22 19:42) promethazine Allergy (Verified 01/30/19 04:03) shellfish derived Adverse Reaction (Severe, Verified 05/11/22 19:42) ANAPHALEXIS REACTION IV CONTRAST Adverse Reaction (Severe, Uncoded 05/11/22 19:41) ANAPHALEXIS REACTION - Review of Systems ROS: No change since H&P - Vital Signs and I&O's Vital Signs: Vital Signs Temperature 98.1 F Temperature 99.0 F Pulse Rate [Left Brachial] 73 Pulse Rate [Left Brachial] 70 Respiratory Rate 20 Respiratory Rate 18 Blood Pressure [Left Arm] 114/58 Blood Pressure [Left Arm] 99/57 O2 Sat by Pulse Oximetry 95 O2 Sat by Pulse Oximetry 95 Intake and Output: Intake & Output 11/01/22 11/02/22 11/03/22 11/04/22 11:59 11:59 11:59 11:59 Intake Total 791 / 791 1276 / 1276 Balance 791 / 791 1276 / 1276 - Physical Exam Oriented: Normal Eyes: Blurred Vision (CHRONIC VISION IMPAIRMENT) Ear: Normal Nose: Normal Throat: Normal Respiratory: Wheezes Cardiovascular: Tachycardia. negative: Edema : Normal Auscultation: Bowel Sounds: Normal Tenderness: Normal Skin: Decreased Turgur Musculoskeletal: Normal Psychiatric: Anxiety Affect: Anxious Speech Pattern: Clear, Appropriate - Laboratory and Diagnostics Result Diagrams: 11/03/22 06:24 11/03/22 06:24 Labs: Laboratory WBC 6.3 X10^3/uL (3.6-10.0) 11/03/22 06:24 RBC 4.29 X10^6/uL (3.5-5.4) 11/03/22 06:24 Hgb 13.3 g/dL (12.0-16.0) 11/03/22 06:24 Hct 39.0 % (36.0-47.0) 11/03/22 06:24 MCV 91.1 fL (80.0-100.0) 11/03/22 06:24 MCH 31.0 pg (27.0-34.0) 11/03/22 06:24 MCHC 34.1 g/dL (33.0-35.0) 11/03/22 06:24 RDW 12.7 % (11.6-16.5) 11/03/22 06:24 Plt Count 208 X10^3/uL (150.0-450.0) 11/03/22 06:24 MPV 7.9 fL (7.4-11.0) 11/03/22 06:24 Neut % (Auto) 71.9 % (42.0-75.0) 11/03/22 06:24 Lymph % (Auto) 21.5 % (21.0-51.0) 11/03/22 06:24 [place] % (Auto) 6.3 % (0.0-13.0) 11/03/22 06:24 Eos % (Auto) 0.0 % (0.9-2.9) L 11/03/22 06:24 Baso % (Auto) 0.3 % (0.2-1.0) 11/03/22 06:24 Neut # (Auto) 4.5 x10^3/uL (2.2-4.8) 11/03/22 06:24 Lymph # (Auto) 1.4 X10^3/uL (1.3-2.9) 11/03/22 06:24 [place] # (Auto) 0.4 x10^3/uL (0.3-0.8) 11/03/22 06:24 Eos # (Auto) 0.0 x10^3/uL (0.0-0.2) 11/03/22 06:24 Baso # (Auto) 0.0 X10^3/uL (0.0-0.1) 11/03/22 06:24 Absolute Nucleated RBC 0.1 /100WBC 11/03/22 06:24 Sodium 136 mmol/L (136-145) 11/03/22 06:24 Corrected Sodium 140 mmol/L (136-145) 11/03/22 06:24 Potassium 4.3 mmol/L (3.5-5.1) 11/03/22 06:24 Chloride 103 mmol/L (98-107) 11/03/22 06:24 Carbon Dioxide 25.5 mmol/L (21-32) 11/03/22 06:24 BUN 18 mg/dL (7-18) 11/03/22 06:24 Creatinine 0.94 mg/dL (0.55-1.02) 11/03/22 06:24 Est GFR (MDRD) Af Amer > 60 (>60) 11/03/22 06:24 Est GFR (MDRD) Non-Af > 60 (>60) 11/03/22 06:24 Glucose 265 mg/dL (65-99) H 11/03/22 06:24 Calcium 8.1 mg/dL (8.5-10.1) L 11/03/22 06:24 Corrected Calcium TNP 11/03/22 06:24 Total Bilirubin 0.70 mg/dL (0.2-1.0) 11/03/22 06:24 AST 23 Units/L (15-37) 11/03/22 06:24 ALT 29 Units/L (12-78) 11/03/22 06:24 Alkaline Phosphatase 81 Units/L (46-116) 11/03/22 06:24 Total Protein 6.3 g/dL (6.4-8.2) L 11/03/22 06:24 Albumin 3.4 g/dL (3.4-5.0) 11/03/22 06:24 Globulin 2.9 g/dL (2.5-4.5) 11/03/22 06:24 Albumin/Globulin Ratio 1.2 Ratio (1.1-2.1) 11/03/22 06:24 Specimen Type Clean catch urine 11/02/22 17:45 Urine Color Yellow (YELLOW) 11/02/22 17:45 Urine Appearance Hazy (CLEAR) 11/02/22 17:45 Urine pH 6.0 (5.0 - 8.0) 11/02/22 17:45 Ur Specific [place] 1.025 (1.000-1.030) 11/02/22 17:45 Urine Protein 1+ (NEGATIVE) 11/02/22 17:45 Urine Glucose (UA) Negative (NEGATIVE) 11/02/22 17:45 Urine Ketones Negative (NEGATIVE) 11/02/22 17:45 Urine Blood 1+ (NEGATIVE) 11/02/22 17:45 Urine Nitrite Negative (NEGATIVE) 11/02/22 17:45 Urine Bilirubin Negative (NEGATIVE) 11/02/22 17:45 Urine Urobilinogen 1+ (NORMAL) 11/02/22 17:45 Ur Leukocyte Esterase 1+ (NEGATIVE) 11/02/22 17:45 Urine RBC 0-2 /HPF (0-3) 11/02/22 17:45 Urine WBC 0-2 /HPF (0-5) 11/02/22 17:45 Ur Squamous Epith Cells Many /HPF (NEGATIVE) 11/02/22 17:45 Urine Bacteria Trace /HPF (NEGATIVE) 11/02/22 17:45 Hyaline Casts Few /LPF (NEGATIVE) 11/02/22 17:45 Urine Mucus Many /HPF (NEGATIVE) 11/02/22 17:45 Ur Culture Indicated? No/not indicated 11/02/22 17:45 - Plan (1) Influenzal bronchopneumonia Status: Acute Plan: IV HYDRATION. IV ATBX, BS CONTROL. VERIFY HOME MEDICATION. CXR ON ADMISSION, IV SOLU MEDROL 40 X1 DOSE, WE WILL SEE HOW HER BS TOLERATED STEROIDS WITH DIABETES. REPEAT AM CXR (2) Diabetes mellitus type 1 Status: Chronic (3) Insulin pump in place Status: Chronic (4) Anxiety Status: Chronic
[2022-11-03] MEDS ORDERED: LEXAPRO ONE (19:51)
[2022-11-03] MEDS: LEXAPRO PO SCH (20:16)
[2022-11-03] MEDS: ATARAX TAB 10 MG PO SCH (20:16)
[2022-11-03] MEDS: SINGULAIR TAB 10 MG PO SCH (20:16)
[2022-11-03] MEDS: ZOFRAN INJ 4 MG VIAL IVP PRN (21:00)
[2022-11-04] MEDS: NS 1,000 ML IV 1,000 ML IV SCH ×2 (01:11→21:14)
[2022-11-04] MEDS: TUSSIONEX PENNKINETIC SUSP PO PRN ×2 (03:16→23:43)
[2022-11-04] MEDS: TYLENOL 325 MG TAB PO PRN ×2 (06:31→21:11)
[2022-11-04] MEDS: DUONEB 0.5 MG/3 MG (3 mL) NEB SCH ×4 (08:16→21:33)
[2022-11-04] MEDS: PULMICORT NEB TX 0.5 MG NEB SCH ×2 (08:16→21:33)
[2022-11-04] MEDS: ZESTRIL TAB 5 MG PO SCH (08:43)
[2022-11-04] MEDS: ROBITUSSIN DM PO SCH ×4 (08:43→21:03)
[2022-11-04] MEDS: ZOFRAN INJ 4 MG VIAL IVP PRN ×2 (08:43→19:12)
[2022-11-04] MEDS: PROTONIX INJ 40 MG VIAL IVP SCH (08:43)
[2022-11-04] MEDS: SOLU-Medrol 40 MG VIAL IVP SCH (10:09)
--- NOTE | 2022-11-04 14:20 | RAD ---
HISTORYshort of breath, influenzaSTUDYCHEST x-ray, 1 VIEWCOMPARISONX-ray 11/02/2022FINDINGSMild prominence of the interstitial markings is seen. This could be accentuated due to the poor inspiration. Mild interstitial pneumonia or pulmonary edema are not excluded. The heart is probably normal in size, though. No pneumothorax or pleural effusion is seen.IMPRESSIONPoor inspiration with mild prominence of the parahilar markings. Mild interstitial pneumonia or pulmonary edema are not excluded but appearance could be artifactual.Electronically signed by: Paolo Madrigal (Nov 04, 2022 14:19:43)
--- NOTE | 2022-11-04 17:39 | PCM.PROG ---
Progress Note - Progress Note for Day of Date of Exam: 11/04/22 - Subjective Subjective: PT IS 52 WF ADMITTED WITH COMPLICATIONS FOLLOWING INFLUENZA. PT IS CURRENTLY ON IV ATBX, IV HDYRATION, BS AND BP CONTROL. PT HAD CONTINUED COUGH AND BOTH MILD INSPIRATORY WHEEZES AND DIFFUSE UPPER EXPIRATORY WHEEZING. PT STATES SHE WAS FEELING "REALLY BAD" THIS MORNING. PT HAD COUGHING EPISODE THIS MORNING THAT CAUSED GAGGING. PT REPORTS SHE DID NOT SLEEP DUE TO COUGHING LAST NIGHT. PT DENIES CHEST PAIN. REPEAT CXR ORDERED FOR THIS MORNING AND SOLU MEDROL 40IV. - Past Medical Family Social History Past Med/Fam/Surg Hx: No changes since H&P Allergies: Allergies gluten Allergy (Verified 05/11/22 19:42) promethazine Allergy (Verified 01/30/19 04:03) shellfish derived Adverse Reaction (Severe, Verified 05/11/22 19:42) ANAPHALEXIS REACTION IV CONTRAST Adverse Reaction (Severe, Uncoded 05/11/22 19:41) ANAPHALEXIS REACTION - Review of Systems ROS: No change since H&P - Vital Signs and I&O's Vital Signs: Vital Signs Temperature 98.5 F Temperature 97.8 F Pulse Rate [Left Brachial] 76 Pulse Rate [Left Brachial] 63 Respiratory Rate 20 Respiratory Rate 20 Blood Pressure [Left Arm] 140/68 Blood Pressure [Left Arm] 139/62 O2 Sat by Pulse Oximetry 94 O2 Sat by Pulse Oximetry 92 Intake and Output: Intake & Output 11/02/22 11/03/22 11/04/22 11/05/22 11:59 11:59 11:59 11:59 Intake Total 791 / 791 2602 / 2602 734 / 734 Balance 791 / 791 2602 / 2602 734 / 734 - Physical Exam Oriented: Normal Eyes: Blurred Vision (CHRONIC VISION IMPAIRMENT) Ear: Normal Nose: Normal Throat: Normal Respiratory: Wheezes Cardiovascular: Tachycardia. negative: Edema : Normal Auscultation: Bowel Sounds: Normal Tenderness: Normal Skin: Decreased Turgur Musculoskeletal: Normal Psychiatric: Anxiety Affect: Anxious Speech Pattern: Clear, Appropriate - Laboratory and Diagnostics Result Diagrams: 11/03/22 06:24 11/03/22 06:24 Labs: 11/03/22 22:12 Sputum - Expectorated Sputum Sputum Culture - Preliminary 08/16/23 22:12 Sputum - Expectorated Sputum - Final Laboratory WBC 6.3 X10^3/uL (3.6-10.0) 11/03/22 06:24 RBC 4.29 X10^6/uL (3.5-5.4) 11/03/22 06:24 Hgb 13.3 g/dL (12.0-16.0) 11/03/22 06:24 Hct 39.0 % (36.0-47.0) 11/03/22 06:24 MCV 91.1 fL (80.0-100.0) 11/03/22 06:24 MCH 31.0 pg (27.0-34.0) 11/03/22 06:24 MCHC 34.1 g/dL (33.0-35.0) 11/03/22 06:24 RDW 12.7 % (11.6-16.5) 11/03/22 06:24 Plt Count 208 X10^3/uL (150.0-450.0) 11/03/22 06:24 MPV 7.9 fL (7.4-11.0) 11/03/22 06:24 Neut % (Auto) 71.9 % (42.0-75.0) 11/03/22 06:24 Lymph % (Auto) 21.5 % (21.0-51.0) 11/03/22 06:24 [place] % (Auto) 6.3 % (0.0-13.0) 11/03/22 06:24 Eos % (Auto) 0.0 % (0.9-2.9) L 11/03/22 06:24 Baso % (Auto) 0.3 % (0.2-1.0) 11/03/22 06:24 Neut # (Auto) 4.5 x10^3/uL (2.2-4.8) 11/03/22 06:24 Lymph # (Auto) 1.4 X10^3/uL (1.3-2.9) 11/03/22 06:24 [place] # (Auto) 0.4 x10^3/uL (0.3-0.8) 11/03/22 06:24 Eos # (Auto) 0.0 x10^3/uL (0.0-0.2) 11/03/22 06:24 Baso # (Auto) 0.0 X10^3/uL (0.0-0.1) 11/03/22 06:24 Absolute Nucleated RBC 0.1 /100WBC 11/03/22 06:24 Sodium 136 mmol/L (136-145) 11/03/22 06:24 Corrected Sodium 140 mmol/L (136-145) 11/03/22 06:24 Potassium 4.3 mmol/L (3.5-5.1) 11/03/22 06:24 Chloride 103 mmol/L (98-107) 11/03/22 06:24 Carbon Dioxide 25.5 mmol/L (21-32) 11/03/22 06:24 BUN 18 mg/dL (7-18) 11/03/22 06:24 Creatinine 0.94 mg/dL (0.55-1.02) 11/03/22 06:24 Est GFR (MDRD) Af Amer > 60 (>60) 11/03/22 06:24 Est GFR (MDRD) Non-Af > 60 (>60) 11/03/22 06:24 Glucose 265 mg/dL (65-99) H 11/03/22 06:24 Calcium 8.1 mg/dL (8.5-10.1) L 11/03/22 06:24 Corrected Calcium TNP 11/03/22 06:24 Total Bilirubin 0.70 mg/dL (0.2-1.0) 11/03/22 06:24 AST 23 Units/L (15-37) 11/03/22 06:24 ALT 29 Units/L (12-78) 11/03/22 06:24 Alkaline Phosphatase 81 Units/L (46-116) 11/03/22 06:24 Total Protein 6.3 g/dL (6.4-8.2) L 11/03/22 06:24 Albumin 3.4 g/dL (3.4-5.0) 11/03/22 06:24 Globulin 2.9 g/dL (2.5-4.5) 11/03/22 06:24 Albumin/Globulin Ratio 1.2 Ratio (1.1-2.1) 11/03/22 06:24 Specimen Type Clean catch urine 11/02/22 17:45 Urine Color Yellow (YELLOW) 11/02/22 17:45 Urine Appearance Hazy (CLEAR) 11/02/22 17:45 Urine pH 6.0 (5.0 - 8.0) 11/02/22 17:45 Ur Specific [place] 1.025 (1.000-1.030) 11/02/22 17:45 Urine Protein 1+ (NEGATIVE) 11/02/22 17:45 Urine Glucose (UA) Negative (NEGATIVE) 11/02/22 17:45 Urine Ketones Negative (NEGATIVE) 11/02/22 17:45 Urine Blood 1+ (NEGATIVE) 11/02/22 17:45 Urine Nitrite Negative (NEGATIVE) 11/02/22 17:45 Urine Bilirubin Negative (NEGATIVE) 11/02/22 17:45 Urine Urobilinogen 1+ (NORMAL) 11/02/22 17:45 Ur Leukocyte Esterase 1+ (NEGATIVE) 11/02/22 17:45 Urine RBC 0-2 /HPF (0-3) 11/02/22 17:45 Urine WBC 0-2 /HPF (0-5) 11/02/22 17:45 Ur Squamous Epith Cells Many /HPF (NEGATIVE) 11/02/22 17:45 Urine Bacteria Trace /HPF (NEGATIVE) 11/02/22 17:45 Hyaline Casts Few /LPF (NEGATIVE) 11/02/22 17:45 Urine Mucus Many /HPF (NEGATIVE) 11/02/22 17:45 Ur Culture Indicated? No/not indicated 11/02/22 17:45 - Plan (1) Influenzal bronchopneumonia Status: Acute Plan: IV HYDRATION. IV ATBX, BS CONTROL. VERIFY HOME MEDICATION. REPEAT CXR, IV SOLU MEDROL, WE WILL SEE HOW HER BS TOLERATED STEROIDS WITH DIABETES. REPEAT AM CXR (2) Diabetes mellitus type 1 Status: Chronic (3) Insulin pump in place Status: Chronic (4) Anxiety Status: Chronic
[2022-11-04] MEDS ORDERED: LEXAPRO ONE (20:12)
[2022-11-04] MEDS ORDERED: VISTARIL PO ONE (20:55)
[2022-11-04] MEDS: LEXAPRO PO SCH (21:02)
[2022-11-04] MEDS: SINGULAIR TAB 10 MG PO SCH (21:03)
[2022-11-04] MEDS: ATARAX TAB 10 MG PO SCH (21:15)
[2022-11-05 00:05] VITALS: RESP 20
[2022-11-05] MEDS: NS 1,000 ML IV 1,000 ML IV SCH (03:07)
[2022-11-05 06:10] LABS: BASOPHILS # (AUTO) 0.1 X10^3/uL (0.0-0.1); BASOPHILS % (AUTO) 0.7 % (0.2-1.0); EOSINOPHILS % (AUTO) 0.1 % (0.9-2.9); HEMATOCRIT 35.6 % (36.0-47.0); HEMOGLOBIN 12.2 g/dL (12.0-16.0); LYMPHOCYTES # (AUTO) 2.1 X10^3/uL (1.3-2.9); LYMPHOCYTES % (AUTO) 28.2 % (21.0-51.0); MEAN CORPUSCULAR HEMOGLOBIN 31.7 pg (27.0-34.0); MEAN CORPUSCULAR HGB CONC 34.3 g/dL (33.0-35.0); MEAN CORPUSCULAR VOLUME 92.4 fL (80.0-100.0); MEAN PLATELET VOLUME 8.1 fL (7.4-11.0); MONOCYTES # (AUTO) 0.5 x10^3/uL (0.3-0.8); MONOCYTES % (AUTO) 6.9 % (0.0-13.0); NEUTROPHILS # (AUTO) 4.8 x10^3/uL (2.2-4.8); NEUTROPHILS % (AUTO) 64.1 % (42.0-75.0); PLATELET COUNT 192 X10^3/uL (150.0-450.0); RED BLOOD COUNT 3.85 X10^6/uL (3.5-5.4); RED CELL DISTRIBUTION WIDTH 12.6 % (11.6-16.5); WHITE BLOOD COUNT 7.5 X10^3/uL (3.6-10.0)
[2022-11-05 06:34] LABS: ALANINE AMINOTRANSFERASE 26 Units/L (12-78); ALBUMIN 3.1 g/dL (3.4-5.0); ALKALINE PHOSPHATASE 66 Units/L (46-116); ASPARTATE AMINO TRANSFERASE 18 Units/L (15-37); BLOOD UREA NITROGEN 18 mg/dL (7-18); CALCIUM 7.9 mg/dL (8.5-10.1); CARBON DIOXIDE 28.1 mmol/L (21-32); CHLORIDE 103 mmol/L (98-107); COR CA(FOR HYPOALB) 8.6 mg/dL (8.5-10.1); COR NA(FOR HYPERGLY) 142 mmol/L (136-145); CREATININE 0.93 mg/dL (0.55-1.02); GLUCOSE 249 mg/dL (65-99); POTASSIUM 3.9 mmol/L (3.5-5.1); SODIUM 138 mmol/L (136-145); TOTAL PROTEIN 5.7 g/dL (6.4-8.2); eGFR NON BLACK RACES > 60 (>60)
[2022-11-05] MEDS: DUONEB 0.5 MG/3 MG (3 mL) NEB SCH (08:08)
[2022-11-05] MEDS: PULMICORT NEB TX 0.5 MG NEB SCH (08:08)
[2022-11-05] MEDS: SOLU-Medrol 40 MG VIAL IVP SCH (08:47)
[2022-11-05] MEDS: ZESTRIL TAB 5 MG PO SCH (08:47)
[2022-11-05] MEDS: ROBITUSSIN DM PO SCH (08:47)
[2022-11-05] MEDS: PROTONIX INJ 40 MG VIAL IVP SCH (08:47)
[2022-11-05 09:16] VITALS: PULSE 73; O2SAT 96
[2022-11-05 09:35] VITALS: BP 138/66; TEMP 98
[2022-11-05] MEDS: ZOFRAN INJ 4 MG VIAL IVP PRN (10:55)
== END 2022-11-05 11:55 | disposition home or self-care (01) ==
LOC: MED/SURG
PROVIDERS: ADMIT Internal Medicine; ATTEND Internal Medicine

== ENCOUNTER 2023-07-12 16:45 | Inpatient (IN) ==
[2023-07-12] MEDS ORDERED: NovoLIN R (or HumuLIN R) SC PRN (18:11)
--- NOTE | 2023-07-12 18:30 | DR.H&P ---
H&P History & Physical for Day of: H&P Date: 07/12/23 Chief Complaint Chief Complaint: CCC, SOB, WHEEZING Allergies Allergies Allergy/AdvReac Type Severity Reaction Status Date / Time gluten Allergy Verified 05/11/22 19:42 promethazine Allergy Verified 01/30/19 04:03 Iodinated Contrast Media AdvReac Severe ANAPHALEXIS Verified 06/30/23 11:17 [IVP DYE] REACTION shellfish derived AdvReac Severe ANAPHALEXIS Verified 05/11/22 19:42 REACTION History of Present Illness History of Present Illness: PT IS 53 WF, DIRECT ADMIT FROM DR KELLER'S OFFICE WITH BRONCHOPNEUMONIA, CONFIRMED ON CXR AND FAILED OUTPT THERAPY. PT HAS BEEN SICK SINCE FIRST WEEK ON JUNE FOLLOWING A TRIP TO [facility]. PT HAD NEGATIVE FLU AND COVID AT THAT TIME. PT TOOK AN IM ROCEPHIN, PO AUGMENT AND PO ZITHROMAX AND MEDROL DOSE PACK WITHOUT IMPROVEMENT. PT WAS SEEN IN THE ER DUE TO THIS ILLNESS AND HAD AN ABNORMAL CXR. PT HAS PMH OF TYPE 1 DM, ON INSULIN PUMP WITH A1C AT 7 ON TODAYS LABS. PT HAS HTN, ASTHMA, AR, GERD, OBESTITY AND LUCIUS. PT ADMITTED FOR EVALUATION AND TREATENT OF ACUTE ILLNESS. Past Medical History Past Medical History: Anxiety, Arthritis, Depression, Diabetes and Hypertension Additional Medical History: LUPUS Past Surgical History Surgical History: Cholecystectomy and Hysterectomy Family History Family Medical History: Cancer, Coronary Artery Disease and Hypertension Medications Home Medications: Home Medications Medication Instructions Recorded Confirmed Type lisinopril 5 mg tablet 1 tab PO QAM Kidney Disease 05/11/22 07/08/23 History pantoprazole 40 mg tablet,delayed 1 tab PO QPM indigestion 05/11/22 07/08/23 History release rosuvastatin 5 mg tablet 1 tab PO QPM 05/11/22 07/08/23 History albuterol sulfate 1.25 mg/3 mL 1.25 mg continuous nebulization QID 11/02/22 07/08/23 History solution for nebulization amoxicillin 875 mg-potassium 1 tab PO BID 07/08/23 07/08/23 History clavulanate 125 mg tablet budesonide 0.5 mg/2 mL suspension 0.5 mg BID 07/08/23 07/08/23 History for nebulization codeine 10 mg-guaifenesin 100 mg/5 5 ml PO Q6H PRN 07/08/23 07/08/23 History mL oral liquid ergocalciferol (vitamin D2) 1,250 1,250 mcg PO QWEEK 07/08/23 07/08/23 History mcg (50,000 unit) capsule escitalopram oxalate 20 mg tablet 20 mg PO BID 07/08/23 07/08/23 History hydroxychloroquine 200 mg tablet 200 mg PO QDAY 07/08/23 07/08/23 History ibuprofen 800 mg tablet 800 mg PO Q8H PRN 07/08/23 07/08/23 History insulin aspart U-100 100 unit/mL 07/08/23 History subcutaneous solution (Novolog U-100 Insulin aspart) montelukast 10 mg tablet 10 mg PO QPM 07/08/23 07/08/23 History omeprazole 20 mg capsule,delayed 20 mg PO QDAY 07/08/23 07/08/23 History release Review of Systems Constitutional: Chills, Sweats and Weakness Eyes: Vision Change (CHRONIC) ENT: Nose Congestion Respiratory: Cough, Shortness of Breath, SOB with Excertion, Pleuritic Pain and Wheezing Cardiovascular: Palpitations Gastrointestinal: Nausea and Diarrhea Genitourinary: No Symptoms Reported Musculoskeletal: Back Pain Skin: No Symptoms Reported Neurological: Other (HEADACHE AND DIZZINESS ) Oriented: Normal Eyes: Normal Ear: Normal Nose: Normal Throat: Red and Dry Respiratory: Wheezes Throughout Cardiovascular: Tachycardia Tenderness: Normal Skin: Decreased Turgur Musculoskeletal: Back:Thoracic Psychiatric: Anxiety Affect: Anxious Speech Pattern: Clear and Appropriate Assessment/Plan (1) Bronchopneumonia: Narrative Support Text: ADMIT, NEGATIVE PRESSURE ROOM AFB CULTURES PER IC PROTOCOL CT CHEST, AIT RESP SWAB IV ATBX, IV HYDRATION PRN SUPPLEMENTAL O2 ABG ON ADMISSION BS AND BP CONTROL BC ON ADMISSION Status: Acute (2) Abnormal chest xray: Status: Acute (3) Diabetes mellitus, insulin dependent (IDDM), controlled: Status: Acute (4) Anxiety: Status: Chronic (5) Depression: Status: Chronic (6) GERD (gastroesophageal reflux disease): Status: Chronic (7) Unexplained chronic cough: Status: Acute
[2023-07-12] MEDS: APLISOL ID ONE (19:15)
[2023-07-12 19:50] LABS: ABG ALLEN TEST POS; ABG BASE EXCESS 3.2 mmol/L (-2.0-2.0); ABG HCO3 26.9 mmol/L (22-26)
[2023-07-12] MEDS: ZyrTEC TAB 10 MG PO SCH (20:47)
[2023-07-12] MEDS: TUSSIONEX PENNKINETIC SUSP PO SCH (20:47)
[2023-07-12] MEDS: PROTONIX TAB 40 MG PO SCH (20:47)
[2023-07-12] MEDS ORDERED: ASTELIN NASAL SPRAY ENOSTRIL ONE (20:59)
[2023-07-12] MEDS: ASTELIN NASAL SPRAY ENOSTRIL SCH (21:04)
[2023-07-12] MEDS: ROBITUSSIN DM PO SCH (21:04)
[2023-07-12] MEDS: PEPCID TAB 40 MG PO SCH (21:04)
[2023-07-12 21:25] LABS: BILIRUBIN,URINE NEGATIVE (NEGATIVE); BLOOD/HEMOGLOBIN,URINE NEGATIVE (NEGATIVE); GLUCOSE, URINE NEGATIVE (NEGATIVE); KETONES,URINE NEGATIVE (NEGATIVE); LEUKOCYTE ESTERASE ,URINE NEGATIVE (NEGATIVE); NITRITES,URINE NEGATIVE (NEGATIVE); PROTEIN,URINE 1+ (NEGATIVE); UROBILINOGEN,URINE NORMAL (NORMAL)
[2023-07-12 21:27] LABS: APPEARANCE,URINE CLEAR (CLEAR); COLOR,URINE DARK YELLOW (YELLOW)
[2023-07-12] MEDS: ACCUNEB 1.25 MG NEBULE NEB SCH (21:28)
[2023-07-12] MEDS: PULMICORT NEB TX 0.5 MG NEB SCH (21:28)
[2023-07-12 21:33] LABS: BACTERIA,URINE TRACE /HPF (NEGATIVE); RBC,URINE NONE SEEN /HPF (0-3); SQUAMOUS EPITHELIAL CELL,UR FEW /HPF (NEGATIVE)
[2023-07-12 23:58] VITALS: BMI 37.3
[2023-07-13] MEDS: TYLENOL 325 MG TAB PO PRN (00:45)
[2023-07-13] MEDS: NS 1,000 ML IV 1,000 ML IV SCH (00:46)
[2023-07-13] MEDS: ZITHROMAX INJ 500 MG VIAL 500 MG in D5W 250 ML IV 250 ML IV SCH (00:46)
[2023-07-13 06:11] LABS: BASOPHILS # (AUTO) 0.1 X10^3/uL (0.0-0.1); BASOPHILS % (AUTO) 0.8 % (0.2-1.0); EOSINOPHILS % (AUTO) 0.3 % (0.9-2.9); HEMATOCRIT 39.8 % (36.0-47.0); HEMOGLOBIN 13.6 g/dL (12.0-16.0); LYMPHOCYTES # (AUTO) 2.8 X10^3/uL (1.3-2.9); LYMPHOCYTES % (AUTO) 42.2 % (21.0-51.0); MEAN CORPUSCULAR HEMOGLOBIN 32.2 pg (27.0-34.0); MEAN CORPUSCULAR HGB CONC 34.2 g/dL (33.0-35.0); MEAN CORPUSCULAR VOLUME 94.1 fL (80.0-100.0); MEAN PLATELET VOLUME 8.1 fL (7.4-11.0); MONOCYTES # (AUTO) 0.5 x10^3/uL (0.3-0.8); MONOCYTES % (AUTO) 7.3 % (0.0-13.0); NEUTROPHILS # (AUTO) 3.2 x10^3/uL (2.2-4.8); NEUTROPHILS % (AUTO) 49.4 % (42.0-75.0); PLATELET COUNT 205 X10^3/uL (150.0-450.0); RED BLOOD COUNT 4.23 X10^6/uL (3.5-5.4); RED CELL DISTRIBUTION WIDTH 12.4 % (11.6-16.5); WHITE BLOOD COUNT 6.5 X10^3/uL (3.6-10.0)
[2023-07-13 06:30] LABS: ALANINE AMINOTRANSFERASE 24 Units/L (12-78); ALKALINE PHOSPHATASE 76 Units/L (46-116); ASPARTATE AMINO TRANSFERASE 17 Units/L (15-37); BLOOD UREA NITROGEN 17 mg/dL (7-18); CALCIUM 8.1 mg/dL (8.5-10.1); CARBON DIOXIDE 29.3 mmol/L (21-32); CHLORIDE 106 mmol/L (98-107); COR CA(FOR HYPOALB) 8.9 mg/dL (8.5-10.1); CREATININE 0.89 mg/dL (0.55-1.02); GLUCOSE 106 mg/dL (65-99); POTASSIUM 3.9 mmol/L (3.5-5.1); SODIUM 142 mmol/L (136-145); TOTAL PROTEIN 6.3 g/dL (6.4-8.2); eGFR NON BLACK RACES > 60 (>60)
--- NOTE | 2023-07-13 08:18 | CT ---
EXAM: Chest CT without IV contrast HISTORY: ABNORMAL CXR, CHRONIC COUGH; ASTHMA, BRONCHITIS, PNEUMONIA, COPD, GERD, RENAL DISEASE, RH ARTHRITIS, DM, LUPUS SX: JUAN FRANCISCO, HYST - COMPARISON: X-ray 07/08/2023 TECHNIQUE: Multiple axial images of the chest were obtained from the thoracic inlet to the upper abdomenwithout the administration of IV contrast. Sagittal and coronal reformations are performed. Dose reduction t echniques including Automated Exposure Control (AEC) and adjustment of mA and kV were utilized. FINDINGS: Vague semi side slightly nodular densities are seen in the central aspect of the right upper lobe. 1 of these densities could be a lymph node as it is closely associated with the major fissure. Findin gs could be due to mild bronchopneumonia but other cause of lung nodules cannot be excluded. These m easure up to 7 x 3 mm in size. No left lung nodules are seen. Minimal dependent atelectasis is seen in both CP angles. Mildly prom inent cardiophrenic fat pads are seen with probable cardiomegaly. There may be mild CHF or fluid ove rload. No mediastinal lymphadenopathy. Thoracic aorta is normal in size. Moderate right-sided cons tipation. IMPRESSION: Likely mild CHF or fluid overload. A few vague nodules are seen in the right upper lobe of the lungs. Appearance could be due to bronch opneumonia or granulomatous infection. Suggest follow-up chest CT in 6 months' time to ensure stabil ity or resolution. THIS IS AN ELECTRONICALLY VERIFIED FINAL REPORT 07/13/2023 8:15 AM - Electronically signed by Paolo Madrigal MD
[2023-07-13] MEDS: LASIX IVP SCH (09:43)
[2023-07-13] MEDS: MILK OF MAGNESIA PO SCH (09:44)
[2023-07-13] MEDS: LOVENOX INJ 40 MG SYR SC SCH (10:42)
[2023-07-13] MEDS: TUSSIONEX PENNKINETIC SUSP PO PRN (20:39)
[2023-07-13] MEDS ORDERED: NORCO 5/325 MG TAB PO PRN (22:14)
[2023-07-13] MEDS: MORPHINE SULFATE INJ 2 MG INJ IVP PRN (22:31)
[2023-07-14 05:23] LABS: BASOPHILS # (AUTO) 0.1 X10^3/uL (0.0-0.1); BASOPHILS % (AUTO) 1.5 % (0.2-1.0); EOSINOPHILS # (AUTO) 0.1 x10^3/uL (0.0-0.2); EOSINOPHILS % (AUTO) 1.4 % (0.9-2.9); HEMATOCRIT 40.6 % (36.0-47.0); HEMOGLOBIN 13.6 g/dL (12.0-16.0); LYMPHOCYTES # (AUTO) 1.4 X10^3/uL (1.3-2.9); LYMPHOCYTES % (AUTO) 25.1 % (21.0-51.0); MEAN CORPUSCULAR HEMOGLOBIN 31.8 pg (27.0-34.0); MEAN CORPUSCULAR HGB CONC 33.6 g/dL (33.0-35.0); MEAN CORPUSCULAR VOLUME 94.7 fL (80.0-100.0); MEAN PLATELET VOLUME 8.4 fL (7.4-11.0); MONOCYTES # (AUTO) 0.5 x10^3/uL (0.3-0.8); MONOCYTES % (AUTO) 9.3 % (0.0-13.0); NEUTROPHILS # (AUTO) 3.5 x10^3/uL (2.2-4.8); NEUTROPHILS % (AUTO) 62.7 % (42.0-75.0); PLATELET COUNT 212 X10^3/uL (150.0-450.0); RED BLOOD COUNT 4.28 X10^6/uL (3.5-5.4); RED CELL DISTRIBUTION WIDTH 12.3 % (11.6-16.5); WHITE BLOOD COUNT 5.6 X10^3/uL (3.6-10.0)
[2023-07-14 05:44] LABS: ALANINE AMINOTRANSFERASE 21 Units/L (12-78); ALBUMIN 2.9 g/dL (3.4-5.0); ALKALINE PHOSPHATASE 75 Units/L (46-116); ASPARTATE AMINO TRANSFERASE 16 Units/L (15-37); BLOOD UREA NITROGEN 16 mg/dL (7-18); CALCIUM 8.3 mg/dL (8.5-10.1); CARBON DIOXIDE 32.1 mmol/L (21-32); CHLORIDE 101 mmol/L (98-107); COR CA(FOR HYPOALB) 9.2 mg/dL (8.5-10.1); COR NA(FOR HYPERGLY) 139 mmol/L (136-145); CREATININE 0.92 mg/dL (0.55-1.02); GLUCOSE 186 mg/dL (65-99); POTASSIUM 4.1 mmol/L (3.5-5.1); SODIUM 137 mmol/L (136-145); TOTAL PROTEIN 6.1 g/dL (6.4-8.2); eGFR NON BLACK RACES > 60 (>60)
--- NOTE | 2023-07-14 07:45 | RAD ---
EXAM:CHEST, 1 VIEWHISTORY:BRONCHOPNEUMONIA, POSS TB ;COMPARISON:Prior study or studies were utilized for comparison during interpretation with the most relevant dated 07/13/2023TECHNIQUE:CHEST, 1 VIEWFINDINGS:Chest:Lines and tubes: NoneMediastinum: Cardiac and mediastinal shadow is within normal limits for size and contour.Pulmonary vessels: No pulmonary vascular congestion.Lung porter: No suspicious airspace opacity.Pleura: No effusion. No pneumothorax.Bones and soft tissues: No acute osseous or soft tissue abnormality.IMPRESSION:1. No acute cardiopulmonary abnormalityTHIS IS AN ELECTRONICALLY VERIFIED FINAL REPORT07/14/2023 7:42 AM - Electronically signed by Liborio Mccurdy MD
[2023-07-14] MEDS: CLARITIN PO SCH (20:28)
[2023-07-15 05:15] LABS: BASOPHILS # (AUTO) 0.1 X10^3/uL (0.0-0.1); BASOPHILS % (AUTO) 1.1 % (0.2-1.0); EOSINOPHILS # (AUTO) 0.1 x10^3/uL (0.0-0.2); EOSINOPHILS % (AUTO) 2.3 % (0.9-2.9); HEMATOCRIT 36.9 % (36.0-47.0); HEMOGLOBIN 12.3 g/dL (12.0-16.0); LYMPHOCYTES # (AUTO) 1.3 X10^3/uL (1.3-2.9); LYMPHOCYTES % (AUTO) 24.8 % (21.0-51.0); MEAN CORPUSCULAR HEMOGLOBIN 31.9 pg (27.0-34.0); MEAN CORPUSCULAR HGB CONC 33.5 g/dL (33.0-35.0); MEAN CORPUSCULAR VOLUME 95.4 fL (80.0-100.0); MEAN PLATELET VOLUME 8.8 fL (7.4-11.0); MONOCYTES # (AUTO) 0.4 x10^3/uL (0.3-0.8); MONOCYTES % (AUTO) 7.9 % (0.0-13.0); NEUTROPHILS # (AUTO) 3.5 x10^3/uL (2.2-4.8); NEUTROPHILS % (AUTO) 63.9 % (42.0-75.0); PLATELET COUNT 218 X10^3/uL (150.0-450.0); RED BLOOD COUNT 3.87 X10^6/uL (3.5-5.4); RED CELL DISTRIBUTION WIDTH 12.3 % (11.6-16.5); WHITE BLOOD COUNT 5.4 X10^3/uL (3.6-10.0)
[2023-07-15 05:33] LABS: ALANINE AMINOTRANSFERASE 18 Units/L (12-78); ALBUMIN 2.5 g/dL (3.4-5.0); ALKALINE PHOSPHATASE 68 Units/L (46-116); ASPARTATE AMINO TRANSFERASE 13 Units/L (15-37); BLOOD UREA NITROGEN 15 mg/dL (7-18); CARBON DIOXIDE 28.4 mmol/L (21-32); CHLORIDE 104 mmol/L (98-107); COR CA(FOR HYPOALB) 9.2 mg/dL (8.5-10.1); COR NA(FOR HYPERGLY) 142 mmol/L (136-145); GLUCOSE 258 mg/dL (65-99); POTASSIUM 4.5 mmol/L (3.5-5.1); SODIUM 138 mmol/L (136-145); TOTAL PROTEIN 5.4 g/dL (6.4-8.2); eGFR NON BLACK RACES > 60 (>60)
--- NOTE | 2023-07-15 08:20 | RAD ---
EXAM:Portable AP chestHISTORY:Short of breath lupus renal diseaseCOMPARISON:07/14/2023FINDINGS:Hea rt size continues normal with no definite pneumonia, CHF/edema, atelectasis or pleural fluid.IMPRESSION:No change or acute chest findings.THIS IS AN ELECTRONICALLY VERIFIED FINAL REPORT07/15/2023 8:14 AM - Electronically signed by Rell Gong MD
[2023-07-15] MEDS: MICRO K EXTEN CAP 10 MEQ PO SCH (09:33)
[2023-07-15] MEDS: LASIX IVP SCH (09:33)
[2023-07-15 10:23] LABS: ABG BASE EXCESS 7.2 mmol/L (-2.0-2.0)
[2023-07-15 10:24] LABS: ABG ALLEN TEST POS; ABG HCO3 31.2 mmol/L (22-26)
--- NOTE | 2023-07-15 11:51 | PCM.PROG ---
Progress Note Progress Note for Day of Date of Exam: 07/14/23 Subjective Subjective: This is a 53-year-old white female, patient of our private practice, who was admitted with bronchopneumonia having failed outpatient treatment. The patient had an ER x-ray suggesting a CT due to possible granulomatous disease, could not rule out TB. She denies any known history of TB or known history of TB exposure. We did admit her to a negative pressure room following infectious disease protocol. She was masked coming into the facility as well in transport. We have her on airborne precautions with AFB cultures ordered on admission, as well as [place] Gold blood test- all pending. She had a CT of the chest with contrast obtained yesterday morning showing some nodular disease recommending follow up. She reports that she has a history of asthma and is on triple therapy, as well as needed albuterol. Her renal function is stable. She is a type 1 diabetic with insulin dependence. She had a repeat chest xray this morning that showed no acute cardiopulmonary disease. AM labs: WBC , hgb 13.6, bun 16/creatinine 0.92. Past Medical Family Social History Allergies: Allergies gluten Allergy (Verified 05/11/22 19:42) promethazine Allergy (Verified 01/30/19 04:03) Iodinated Contrast Media [IVP DYE] Adverse Reaction (Severe, Verified 06/30/23 11:17) ANAPHALEXIS REACTION replaces uncoded/free-text entry 'IV CONTRAST' from 05/11/22 shellfish derived Adverse Reaction (Severe, Verified 05/11/22 19:42) ANAPHALEXIS REACTION Vital Signs and I&O's Vital Signs: Vital Signs Temperature 98.0 F Temperature 97.6 F Pulse Rate [Brachial] 78 Pulse Rate [Brachial] 73 Respiratory Rate 18 Respiratory Rate 18 Blood Pressure [Right Arm] 123/61 Blood Pressure [Right Arm] 122/60 O2 Sat by Pulse Oximetry 92 O2 Sat by Pulse Oximetry 95 Intake and Output: Intake & Output 07/12/23 07/13/23 07/14/23 07/15/23 11:59 11:59 11:59 11:59 Intake Total 481 / 481 3449 / 3449 Balance 481 / 481 3449 / 3449 Physical Exam Oriented: Normal Eyes: Normal Ear: Normal Nose: Normal Throat: Red and Dry Respiratory: Wheezes Cardiovascular: Normal Tenderness: Normal Skin: Decreased [place]urgur Musculoskeletal: Back:Thoracic Psychiatric: Anxiety Affect: Anxious Speech Pattern: Clear and Appropriate Laboratory and Diagnostics 07/15/23 04:50 07/15/23 04:50 Labs: 07/12/23 18:50 Blood Blood Culture - Preliminary 07/12/23 18:40 Blood Blood Culture - Preliminary 07/12/23 21:30 Sputum - Expectorated Sputum Sputum Culture - Preliminary 07/12/23 21:30 Sputum - Expectorated Sputum - Final Laboratory WBC 5.6 X10^3/uL (3.6-10.0) 07/14/23 04:39 RBC 4.28 X10^6/uL (3.5-5.4) 07/14/23 04:39 Hgb 13.6 g/dL (12.0-16.0) 07/14/23 04:39 Hct 40.6 % (36.0-47.0) 07/14/23 04:39 MCV 94.7 fL (80.0-100.0) 07/14/23 04:39 MCH 31.8 pg (27.0-34.0) 07/14/23 04:39 MCHC 33.6 g/dL (33.0-35.0) 07/14/23 04:39 RDW 12.3 % (11.6-16.5) 07/14/23 04:39 Plt Count 212 X10^3/uL (150.0-450.0) 07/14/23 04:39 MPV 8.4 fL (7.4-11.0) 07/14/23 04:39 Neut % (Auto) 62.7 % (42.0-75.0) 07/14/23 04:39 Lymph % (Auto) 25.1 % (21.0-51.0) 07/14/23 04:39 [place] % (Auto) 9.3 % (0.0-13.0) 07/14/23 04:39 Eos % (Auto) 1.4 % (0.9-2.9) 07/14/23 04:39 Baso % (Auto) 1.5 % (0.2-1.0) H 07/14/23 04:39 Neut # (Auto) 3.5 x10^3/uL (2.2-4.8) 07/14/23 04:39 Lymph # (Auto) 1.4 X10^3/uL (1.3-2.9) 07/14/23 04:39 [place] # (Auto) 0.5 x10^3/uL (0.3-0.8) 07/14/23 04:39 Eos # (Auto) 0.1 x10^3/uL (0.0-0.2) 07/14/23 04:39 Baso # (Auto) 0.1 X10^3/uL (0.0-0.1) 07/14/23 04:39 Absolute Nucleated RBC 0.0 /100WBC 07/14/23 04:39 Sample Site Rr 07/12/23 18:18 ABG pH 7.470 (7.35-7.45) H 07/12/23 18:18 ABG pCO2 37.0 mmHg (35.0-45.0) 07/12/23 18:18 ABG pO2 68.0 mmHg (80.0-100.0) L 07/12/23 18:18 ABG HCO3 26.9 mmol/L (22-26) H 07/12/23 18:18 ABG O2 Saturation 94.0 % (90-100) 07/12/23 18:18 ABG Base Excess 3.2 mmol/L (-2.0-2.0) H 07/12/23 18:18 Gasper Test Pos 07/12/23 18:18 A-a Gradient 35.0 mmHg 07/12/23 18:18 FiO2 21.0 07/12/23 18:18 Blood Gas Comments [facility] well 07/12/23 18:18 Sodium 137 mmol/L (136-145) 07/14/23 04:39 Corrected Sodium 139 mmol/L (136-145) 07/14/23 04:39 Potassium 4.1 mmol/L (3.5-5.1) 07/14/23 04:39 Chloride 101 mmol/L (98-107) 07/14/23 04:39 Carbon Dioxide 32.1 mmol/L (21-32) H 07/14/23 04:39 BUN 16 mg/dL (7-18) 07/14/23 04:39 Creatinine 0.92 mg/dL (0.55-1.02) 07/14/23 04:39 Est GFR (MDRD) Af Amer > 60 (>60) 07/14/23 04:39 Est GFR (MDRD) Non-Af > 60 (>60) 07/14/23 04:39 Glucose 186 mg/dL (65-99) H 07/14/23 04:39 Calcium 8.3 mg/dL (8.5-10.1) L 07/14/23 04:39 Corrected Calcium 9.2 mg/dL (8.5-10.1) 07/14/23 04:39 Magnesium 2.5 mg/dL (2.0-2.9) 07/14/23 04:39 Total Bilirubin 0.50 mg/dL (0.2-1.0) 07/14/23 04:39 AST 16 Units/L (15-37) 07/14/23 04:39 ALT 21 Units/L (12-78) 07/14/23 04:39 Alkaline Phosphatase 75 Units/L (46-116) 07/14/23 04:39 Total Protein 6.1 g/dL (6.4-8.2) L 07/14/23 04:39 Albumin 2.9 g/dL (3.4-5.0) L 07/14/23 04:39 Globulin 3.2 g/dL (2.5-4.5) 07/14/23 04:39 Albumin/Globulin Ratio 0.9 Ratio (1.1-2.1) L 07/14/23 04:39 Specimen Type Clean catch urine 07/12/23 21:15 Urine Color Dark yellow (YELLOW) 07/12/23 21:15 Urine Appearance Clear (CLEAR) 07/12/23 21:15 Urine pH 6.0 (5.0 - 8.0) 07/12/23 21:15 Ur Specific [place] 1.020 (1.000-1.030) 07/12/23 21:15 Urine Protein 1+ (NEGATIVE) 07/12/23 21:15 Urine Glucose (UA) Negative (NEGATIVE) 07/12/23 21:15 Urine Ketones Negative (NEGATIVE) 07/12/23 21:15 Urine Blood Negative (NEGATIVE) 07/12/23 21:15 Urine Nitrite Negative (NEGATIVE) 07/12/23 21:15 Urine Bilirubin Negative (NEGATIVE) 07/12/23 21:15 Urine Urobilinogen Normal (NORMAL) 07/12/23 21:15 Ur Leukocyte Esterase Negative (NEGATIVE) 07/12/23 21:15 Urine RBC None seen /HPF (0-3) 07/12/23 21:15 Urine WBC 0-2 /HPF (0-5) 07/12/23 21:15 Ur Squamous Epith Cells Few /HPF (NEGATIVE) 07/12/23 21:15 Urine Bacteria Trace /HPF (NEGATIVE) 07/12/23 21:15 Urine Mucus Moderate /HPF (NEGATIVE) 07/12/23 21:15 Ur Culture Indicated? No/not indicated 07/12/23 21:15 Resp Viral Panel (PCR) Cancelled 07/12/23 19:30 Resp Viral Panel (PCR) See scanned report 07/12/23 19:30 Plan (1) Bronchopneumonia: Status: Acute Plan: Continue IV abx, IV hydration, respiratory therapy, supplemental 02, pulmonary toileting, blood sugar control. (2) Abnormal chest xray: Status: Acute (3) Diabetes mellitus, insulin dependent (IDDM), controlled: Status: Acute (4) Anxiety: Status: Chronic (5) Depression: Status: Chronic (6) GERD (gastroesophageal reflux disease): Status: Chronic (7) Unexplained chronic cough: Status: Acute
[2023-07-15] MEDS: SOLU-Medrol 40 MG VIAL IVP SCH (13:16)
[2023-07-16 06:17] LABS: BASOPHILS # (AUTO) 0.1 X10^3/uL (0.0-0.1); BASOPHILS % (AUTO) 0.8 % (0.2-1.0); EOSINOPHILS % (AUTO) 0.3 % (0.9-2.9); HEMATOCRIT 37.7 % (36.0-47.0); HEMOGLOBIN 12.9 g/dL (12.0-16.0); LYMPHOCYTES # (AUTO) 1.1 X10^3/uL (1.3-2.9); LYMPHOCYTES % (AUTO) 12.3 % (21.0-51.0); MEAN CORPUSCULAR HEMOGLOBIN 31.9 pg (27.0-34.0); MEAN CORPUSCULAR HGB CONC 34.2 g/dL (33.0-35.0); MEAN CORPUSCULAR VOLUME 93.4 fL (80.0-100.0); MEAN PLATELET VOLUME 9.6 fL (7.4-11.0); MONOCYTES # (AUTO) 0.4 x10^3/uL (0.3-0.8); MONOCYTES % (AUTO) 4.5 % (0.0-13.0); NEUTROPHILS # (AUTO) 7.7 x10^3/uL (2.2-4.8); NEUTROPHILS % (AUTO) 82.1 % (42.0-75.0); PLATELET COUNT 199 X10^3/uL (150.0-450.0); RED BLOOD COUNT 4.04 X10^6/uL (3.5-5.4); WHITE BLOOD COUNT 9.3 X10^3/uL (3.6-10.0)
[2023-07-16 06:25] LABS: ALANINE AMINOTRANSFERASE 20 Units/L (12-78); ALBUMIN 2.8 g/dL (3.4-5.0); ALKALINE PHOSPHATASE 70 Units/L (46-116); ASPARTATE AMINO TRANSFERASE 15 Units/L (15-37); BLOOD UREA NITROGEN 16 mg/dL (7-18); CALCIUM 8.5 mg/dL (8.5-10.1); CARBON DIOXIDE 25.9 mmol/L (21-32); CHLORIDE 105 mmol/L (98-107); COR CA(FOR HYPOALB) 9.5 mg/dL (8.5-10.1); COR NA(FOR HYPERGLY) 140 mmol/L (136-145); CREATININE 0.73 mg/dL (0.55-1.02); GLUCOSE 180 mg/dL (65-99); POTASSIUM 4.1 mmol/L (3.5-5.1); SODIUM 138 mmol/L (136-145); eGFR NON BLACK RACES > 60 (>60)
[2023-07-16] MEDS ORDERED: LEXAPRO ONE (08:11)
[2023-07-16] MEDS: LEXAPRO PO SCH (08:18)
--- NOTE | 2023-07-16 15:10 | PCM.PROG ---
Progress Note Progress Note for Day of Date of Exam: 07/16/23 Subjective Subjective: This is a 53-year-old white female, patient of our private practice, who was admitted with bronchopneumonia having failed outpatient treatment. The patient had an ER x-ray suggesting a CT due to possible granulomatous disease, could not rule out TB. She denies any known history of TB or known history of TB exposure. We did admit her to a negative pressure room following infectious disease protocol. She was masked coming into the facility as well in transport. We have her on airborne precautions with AFB cultures ordered on admission, as well as [place] Gold blood test- all pending. She had a CT of the chest with contrast obtained yesterday morning showing some nodular disease recommending follow up. She reports that she has a history of asthma and is on triple therapy, as well as needed albuterol. Her renal function is stable. She is a type 1 diabetic with insulin dependence. She had a repeat chest xray this morning that showed no acute cardiopulmonary disease. AM labs: WBC , hgb 13.6, bun 16/creatinine 0.92. Tuesday, 16 July 2023 This morning the patient is resting comfortably. She has no new complaints as is still having some dyspnea. She is still mildly hypoxic on 2 L nasal cannula this morning. The rest of her vital signs are stable. Her PPD is negative at 48 hours now. Will continue her on IV antibiotics and jet nebs. Past Medical Family Social History Allergies: Allergies gluten Allergy (Verified 05/11/22 19:42) promethazine Allergy (Verified 01/30/19 04:03) Iodinated Contrast Media [IVP DYE] Adverse Reaction (Severe, Verified 06/30/23 11:17) ANAPHALEXIS REACTION replaces uncoded/free-text entry 'IV CONTRAST' from 05/11/22 shellfish derived Adverse Reaction (Severe, Verified 05/11/22 19:42) ANAPHALEXIS REACTION Review of Systems ROS: No change since H&P Vital Signs and I&O's Vital Signs: Vital Signs Temperature 98.6 F Temperature 97.8 F Pulse Rate [Brachial] 74 Pulse Rate [Brachial] 77 Pulse Rate 77 Respiratory Rate 20 Respiratory Rate 20 Blood Pressure [Left Arm] 116/54 Blood Pressure [Left Arm] 148/70 O2 Sat by Pulse Oximetry 91 O2 Sat by Pulse Oximetry 95 O2 Sat by Pulse Oximetry 95 Intake and Output: Intake & Output 07/14/23 07/15/23 07/16/23 07/17/23 11:59 11:59 11:59 11:59 Intake Total 3449 / 3449 3119 / 3119 2601 / 2601 Output Total 400 / 400 Balance 3449 / 3449 3119 / 3119 2201 / 2201 Physical Exam Oriented: Normal Eyes: Normal Ear: Normal Nose: Normal Throat: Red and Dry Respiratory: Wheezes Cardiovascular: Normal Tenderness: Normal Skin: Decreased Turgur Musculoskeletal: Back:Thoracic Psychiatric: Anxiety Affect: Anxious Speech Pattern: Clear and Appropriate Laboratory and Diagnostics 07/16/23 05:47 07/16/23 05:47 Labs: 07/12/23 21:30 Sputum - Expectorated Sputum Sputum Culture - Final 07/12/23 21:30 Sputum - Expectorated Sputum - Final 07/12/23 18:50 Blood Blood Culture - Preliminary 07/12/23 18:40 Blood Blood Culture - Preliminary Laboratory WBC 9.3 X10^3/uL (3.6-10.0) 07/16/23 05:47 RBC 4.04 X10^6/uL (3.5-5.4) 07/16/23 05:47 Hgb 12.9 g/dL (12.0-16.0) 07/16/23 05:47 Hct 37.7 % (36.0-47.0) 07/16/23 05:47 MCV 93.4 fL (80.0-100.0) 07/16/23 05:47 MCH 31.9 pg (27.0-34.0) 07/16/23 05:47 MCHC 34.2 g/dL (33.0-35.0) 07/16/23 05:47 RDW 12.0 % (11.6-16.5) 07/16/23 05:47 Plt Count 199 X10^3/uL (150.0-450.0) 07/16/23 05:47 MPV 9.6 fL (7.4-11.0) 07/16/23 05:47 Neut % (Auto) 82.1 % (42.0-75.0) H 07/16/23 05:47 Lymph % (Auto) 12.3 % (21.0-51.0) L 07/16/23 05:47 [place] % (Auto) 4.5 % (0.0-13.0) 07/16/23 05:47 Eos % (Auto) 0.3 % (0.9-2.9) L 07/16/23 05:47 Baso % (Auto) 0.8 % (0.2-1.0) 07/16/23 05:47 Neut # (Auto) 7.7 x10^3/uL (2.2-4.8) H 07/16/23 05:47 Lymph # (Auto) 1.1 X10^3/uL (1.3-2.9) L 07/16/23 05:47 [place] # (Auto) 0.4 x10^3/uL (0.3-0.8) 07/16/23 05:47 Eos # (Auto) 0.0 x10^3/uL (0.0-0.2) 07/16/23 05:47 Baso # (Auto) 0.1 X10^3/uL (0.0-0.1) 07/16/23 05:47 Absolute Nucleated RBC 0.0 /100WBC 07/16/23 05:47 Sample Site Lra 07/15/23 10:20 ABG pH 7.490 (7.35-7.45) H 07/15/23 10:20 ABG pCO2 41.0 mmHg (35.0-45.0) 07/15/23 10:20 ABG pO2 68.0 mmHg (80.0-100.0) L 07/15/23 10:20 ABG HCO3 31.2 mmol/L (22-26) H* 07/15/23 10:20 ABG O2 Saturation 95.0 % (90-100) 07/15/23 10:20 ABG Base Excess 7.2 mmol/L (-2.0-2.0) H 07/15/23 10:20 Gasper Test Pos 07/15/23 10:20 A-a Gradient 30.0 mmHg 07/15/23 10:20 FiO2 21.0 07/15/23 10:20 Blood Gas Comments Pt saige well eb 07/15/23 10:20 Sodium 138 mmol/L (136-145) 07/16/23 05:47 Corrected Sodium 140 mmol/L (136-145) 07/16/23 05:47 Potassium 4.1 mmol/L (3.5-5.1) 07/16/23 05:47 Chloride 105 mmol/L (98-107) 07/16/23 05:47 Carbon Dioxide 25.9 mmol/L (21-32) 07/16/23 05:47 BUN 16 mg/dL (7-18) 07/16/23 05:47 Creatinine 0.73 mg/dL (0.55-1.02) 07/16/23 05:47 Est GFR (MDRD) Af Amer > 60 (>60) 07/16/23 05:47 Est GFR (MDRD) Non-Af > 60 (>60) 07/16/23 05:47 Glucose 180 mg/dL (65-99) H 07/16/23 05:47 Calcium 8.5 mg/dL (8.5-10.1) 07/16/23 05:47 Corrected Calcium 9.5 mg/dL (8.5-10.1) 07/16/23 05:47 Magnesium 2.5 mg/dL (2.0-2.9) 07/14/23 04:39 Total Bilirubin 0.50 mg/dL (0.2-1.0) 07/16/23 05:47 AST 15 Units/L (15-37) 07/16/23 05:47 ALT 20 Units/L (12-78) 07/16/23 05:47 Alkaline Phosphatase 70 Units/L (46-116) 07/16/23 05:47 Total Protein 6.0 g/dL (6.4-8.2) L 07/16/23 05:47 Albumin 2.8 g/dL (3.4-5.0) L 07/16/23 05:47 Globulin 3.2 g/dL (2.5-4.5) 07/16/23 05:47 Albumin/Globulin Ratio 0.9 Ratio (1.1-2.1) L 07/16/23 05:47 Specimen Type Clean catch urine 07/12/23 21:15 Urine Color Dark yellow (YELLOW) 07/12/23 21:15 Urine Appearance Clear (CLEAR) 07/12/23 21:15 Urine pH 6.0 (5.0 - 8.0) 07/12/23 21:15 Ur Specific [place] 1.020 (1.000-1.030) 07/12/23 21:15 Urine Protein 1+ (NEGATIVE) 07/12/23 21:15 Urine Glucose (UA) Negative (NEGATIVE) 07/12/23 21:15 Urine Ketones Negative (NEGATIVE) 07/12/23 21:15 Urine Blood Negative (NEGATIVE) 07/12/23 21:15 Urine Nitrite Negative (NEGATIVE) 07/12/23 21:15 Urine Bilirubin Negative (NEGATIVE) 07/12/23 21:15 Urine Acetone Negative (NEGATIVE) 07/16/23 01:59 Urine Urobilinogen Normal (NORMAL) 07/12/23 21:15 Ur Leukocyte Esterase Negative (NEGATIVE) 07/12/23 21:15 Urine RBC None seen /HPF (0-3) 07/12/23 21:15 Urine WBC 0-2 /HPF (0-5) 07/12/23 21:15 Ur Squamous Epith Cells Few /HPF (NEGATIVE) 07/12/23 21:15 Urine Bacteria Trace /HPF (NEGATIVE) 07/12/23 21:15 Urine Mucus Moderate /HPF (NEGATIVE) 07/12/23 21:15 Ur Culture Indicated? No/not indicated 07/12/23 21:15 Resp Viral Panel (PCR) Cancelled 07/12/23 19:30 Resp Viral Panel (PCR) See scanned report 07/12/23 19:30 TB (QFT) Gold In Tube Negative (Negative) 07/13/23 09:08 TB Test Mitogen - Nil >10.00 IU/mL 07/13/23 09:08 TB Test Ag - Nil 1 0.02 IU/mL (0.00-0.34) 07/13/23 09:08 TB Test Ag - Nil 2 0.00 IU/mL (0.00-0.34) 07/13/23 09:08 TB Test TB -Nil 0.02 IU/mL 07/13/23 09:08 Radiology Reviewed: Yes Plan (1) Bronchopneumonia: Status: Acute Plan: Continue IV abx, IV hydration, respiratory therapy, supplemental 02, pulmonary toileting, blood sugar control. (2) Abnormal chest xray: Status: Acute (3) Diabetes mellitus, insulin dependent (IDDM), controlled: Status: Acute (4) Anxiety: Status: Chronic (5) Depression: Status: Chronic (6) GERD (gastroesophageal reflux disease): Status: Chronic (7) Unexplained chronic cough: Status: Acute
[2023-07-17 05:43] LABS: BASOPHILS # (AUTO) 0.1 X10^3/uL (0.0-0.1); BASOPHILS % (AUTO) 0.6 % (0.2-1.0); EOSINOPHILS % (AUTO) 0.2 % (0.9-2.9); HEMATOCRIT 37.9 % (36.0-47.0); HEMOGLOBIN 12.8 g/dL (12.0-16.0); LYMPHOCYTES # (AUTO) 1.6 X10^3/uL (1.3-2.9); LYMPHOCYTES % (AUTO) 17.5 % (21.0-51.0); MEAN CORPUSCULAR HGB CONC 33.8 g/dL (33.0-35.0); MEAN CORPUSCULAR VOLUME 94.7 fL (80.0-100.0); MEAN PLATELET VOLUME 9.5 fL (7.4-11.0); MONOCYTES # (AUTO) 0.6 x10^3/uL (0.3-0.8); MONOCYTES % (AUTO) 5.9 % (0.0-13.0); NEUTROPHILS % (AUTO) 75.8 % (42.0-75.0); PLATELET COUNT 106 X10^3/uL (150.0-450.0); RED CELL DISTRIBUTION WIDTH 12.4 % (11.6-16.5); WHITE BLOOD COUNT 9.3 X10^3/uL (3.6-10.0)
[2023-07-17 06:01] LABS: ALANINE AMINOTRANSFERASE 27 Units/L (12-78); ALBUMIN 2.9 g/dL (3.4-5.0); ALKALINE PHOSPHATASE 70 Units/L (46-116); ASPARTATE AMINO TRANSFERASE 24 Units/L (15-37); BLOOD UREA NITROGEN 13 mg/dL (7-18); CALCIUM 8.6 mg/dL (8.5-10.1); CARBON DIOXIDE 23.3 mmol/L (21-32); CHLORIDE 106 mmol/L (98-107); COR CA(FOR HYPOALB) 9.5 mg/dL (8.5-10.1); COR NA(FOR HYPERGLY) 144 mmol/L (136-145); CREATININE 0.76 mg/dL (0.55-1.02); GLUCOSE 165 mg/dL (65-99); POTASSIUM 3.9 mmol/L (3.5-5.1); SODIUM 142 mmol/L (136-145); TOTAL PROTEIN 6.1 g/dL (6.4-8.2); eGFR NON BLACK RACES > 60 (>60)
--- NOTE | 2023-07-17 06:23 | RAD ---
EXAM: CHEST, PA/LAT ADULT HISTORY: Bronchopneumonia COMPARISON: 07/15/2023 FINDINGS: The trachea is midline. The cardiac silhouette is unremarkable . The lungs are clear without focal infiltrate or effusion. The bony thorax is unremarkable. IMPRESSION: No acute cardiopulmonary disease. THIS IS AN ELECTRONICALLY VERIFIED FINAL REPORT 07/17/2023 6:19 AM - Electronically signed by Braydon Armijo MD
[2023-07-17] MEDS ORDERED: LEXAPRO ONE (08:14)
[2023-07-17] MEDS ORDERED: AMBIEN PO PRN (09:50)
[2023-07-17] MEDS ORDERED: RESTORIL CAP 15 MG PO PRN (20:11)
--- NOTE | 2023-07-17 20:11 | PCM.PROG ---
Progress Note Progress Note for Day of Date of Exam: 07/17/23 Subjective Subjective: This is a 53-year-old white female, patient of our private practice, who was admitted with bronchopneumonia having failed outpatient treatment. The patient had an ER x-ray suggesting a CT due to possible granulomatous disease, could not rule out TB. She denies any known history of TB or known history of TB exposure. We did admit her to a negative pressure room following infectious disease protocol. She was masked coming into the facility as well in transport. We have her on airborne precautions with AFB cultures ordered on admission, as well as [place] Gold blood test- all pending. She had a CT of the chest with contrast obtained yesterday morning showing some nodular disease recommending follow up. She reports that she has a history of asthma and is on triple therapy, as well as needed albuterol. Her renal function is stable. She is a type 1 diabetic with insulin dependence. She had a repeat chest xray this morning that showed no acute cardiopulmonary disease. AM labs: WBC , hgb 13.6, bun 16/creatinine 0.92. 17 July 2023 This morning the patient is resting comfortably. She does report not sleeping well last night. She would like to have something to help her rest tonight. She is still having some mild dyspnea. She is still mildly hypoxic on 2 L nasal cannula this morning. The rest of her vital signs are stable. Her PPD is negative at 72 hours now. Will continue her on IV antibiotics and jet nebs. Past Medical Family Social History Allergies: Allergies gluten Allergy (Verified 05/11/22 19:42) promethazine Allergy (Verified 01/30/19 04:03) Iodinated Contrast Media [IVP DYE] Adverse Reaction (Severe, Verified 06/30/23 11:17) ANAPHALEXIS REACTION replaces uncoded/free-text entry 'IV CONTRAST' from 05/11/22 shellfish derived Adverse Reaction (Severe, Verified 05/11/22 19:42) ANAPHALEXIS REACTION Review of Systems ROS: No change since H&P Vital Signs and I&O's Vital Signs: Vital Signs Temperature 98.6 F Pulse Rate [Left Radial] 97 Respiratory Rate 20 Blood Pressure [Left Arm] 139/66 O2 Sat by Pulse Oximetry 97 Intake and Output: Intake & Output 04/26/24 07/16/23 07/17/23 07/18/23 11:59 11:59 11:59 11:59 Intake Total 3118 / 9 2601 / 2601 2096 120 Output Total 400 / 400 Balance 3119 / 3119 2201 / 2201 2096 / 120 Physical Exam Oriented: Normal Eyes: Normal Ear: Normal Nose: Normal Throat: Red and Dry Respiratory: Wheezes Cardiovascular: Normal Tenderness: Normal Skin: Decreased Turgur Musculoskeletal: Back:Thoracic Psychiatric: Anxiety Affect: Anxious Speech Pattern: Clear and Appropriate Laboratory and Diagnostics 07/17/23 04:55 07/17/23 04:55 Labs: 07/12/23 21:30 Sputum - Expectorated Sputum Sputum Culture - Final 07/12/23 21:30 Sputum - Expectorated Sputum - Final 07/12/23 18:50 Blood Blood Culture - Preliminary 07/12/23 18:40 Blood Blood Culture - Preliminary Laboratory WBC 9.3 X10^3/uL (3.6-10.0) 07/17/23 04:55 RBC 4.00 X10^6/uL (3.5-5.4) 07/17/23 04:55 Hgb 12.8 g/dL (12.0-16.0) 07/17/23 04:55 Hct 37.9 % (36.0-47.0) 07/17/23 04:55 MCV 94.7 fL (80.0-100.0) 07/17/23 04:55 MCH 32.0 pg (27.0-34.0) 07/17/23 04:55 MCHC 33.8 g/dL (33.0-35.0) 07/17/23 04:55 RDW 12.4 % (11.6-16.5) 07/17/23 04:55 Plt Count 106 X10^3/uL (150.0-450.0) L 07/17/23 04:55 MPV 9.5 fL (7.4-11.0) 07/17/23 04:55 Neut % (Auto) 75.8 % (42.0-75.0) H 07/17/23 04:55 Lymph % (Auto) 17.5 % (21.0-51.0) L 07/17/23 04:55 [place] % (Auto) 5.9 % (0.0-13.0) 07/17/23 04:55 Eos % (Auto) 0.2 % (0.9-2.9) L 07/17/23 04:55 Baso % (Auto) 0.6 % (0.2-1.0) 07/17/23 04:55 Neut # (Auto) 7.0 x10^3/uL (2.2-4.8) H 07/17/23 04:55 Lymph # (Auto) 1.6 X10^3/uL (1.3-2.9) 07/17/23 04:55 [place] # (Auto) 0.6 x10^3/uL (0.3-0.8) 07/17/23 04:55 Eos # (Auto) 0.0 x10^3/uL (0.0-0.2) 07/17/23 04:55 Baso # (Auto) 0.1 X10^3/uL (0.0-0.1) 07/17/23 04:55 Absolute Nucleated RBC 0.0 /100WBC 07/17/23 04:55 Sample Site Lra 07/15/23 10:20 ABG pH 7.490 (7.35-7.45) H 07/15/23 10:20 ABG pCO2 41.0 mmHg (35.0-45.0) 07/15/23 10:20 ABG pO2 68.0 mmHg (80.0-100.0) L 07/15/23 10:20 ABG HCO3 31.2 mmol/L (22-26) H* 07/15/23 10:20 ABG O2 Saturation 95.0 % (90-100) 07/15/23 10:20 ABG Base Excess 7.2 mmol/L (-2.0-2.0) H 07/15/23 10:20 Gasper Test Pos 07/15/23 10:20 A-a Gradient 30.0 mmHg 07/15/23 10:20 FiO2 21.0 07/15/23 10:20 Blood Gas Comments Pt saige well eb 07/15/23 10:20 Sodium 142 mmol/L (136-145) 07/17/23 04:55 Corrected Sodium 144 mmol/L (136-145) 07/17/23 04:55 Potassium 3.9 mmol/L (3.5-5.1) 07/17/23 04:55 Chloride 106 mmol/L (98-107) 07/17/23 04:55 Carbon Dioxide 23.3 mmol/L (21-32) 07/17/23 04:55 BUN 13 mg/dL (7-18) 07/17/23 04:55 Creatinine 0.76 mg/dL (0.55-1.02) 07/17/23 04:55 Est GFR (MDRD) Af Amer > 60 (>60) 07/17/23 04:55 Est GFR (MDRD) Non-Af > 60 (>60) 07/17/23 04:55 Glucose 165 mg/dL (65-99) H 07/17/23 04:55 Calcium 8.6 mg/dL (8.5-10.1) 07/17/23 04:55 Corrected Calcium 9.5 mg/dL (8.5-10.1) 07/17/23 04:55 Magnesium 2.5 mg/dL (2.0-2.9) 07/14/23 04:39 Total Bilirubin 0.50 mg/dL (0.2-1.0) 07/17/23 04:55 AST 24 Units/L (15-37) 07/17/23 04:55 ALT 27 Units/L (12-78) 07/17/23 04:55 Alkaline Phosphatase 70 Units/L (46-116) 07/17/23 04:55 Total Protein 6.1 g/dL (6.4-8.2) L 07/17/23 04:55 Albumin 2.9 g/dL (3.4-5.0) L 07/17/23 04:55 Globulin 3.2 g/dL (2.5-4.5) 07/17/23 04:55 Albumin/Globulin Ratio 0.9 Ratio (1.1-2.1) L 07/17/23 04:55 Specimen Type Clean catch urine 07/12/23 21:15 Urine Color Dark yellow (YELLOW) 07/12/23 21:15 Urine Appearance Clear (CLEAR) 07/12/23 21:15 Urine pH 6.0 (5.0 - 8.0) 07/12/23 21:15 Ur Specific [place] 1.020 (1.000-1.030) 07/12/23 21:15 Urine Protein 1+ (NEGATIVE) 07/12/23 21:15 Urine Glucose (UA) Negative (NEGATIVE) 07/12/23 21:15 Urine Ketones Negative (NEGATIVE) 07/12/23 21:15 Urine Blood Negative (NEGATIVE) 07/12/23 21:15 Urine Nitrite Negative (NEGATIVE) 07/12/23 21:15 Urine Bilirubin Negative (NEGATIVE) 07/12/23 21:15 Urine Acetone Negative (NEGATIVE) 07/16/23 01:59 Urine Urobilinogen Normal (NORMAL) 07/12/23 21:15 Ur Leukocyte Esterase Negative (NEGATIVE) 07/12/23 21:15 Urine RBC None seen /HPF (0-3) 07/12/23 21:15 Urine WBC 0-2 /HPF (0-5) 07/12/23 21:15 Ur Squamous Epith Cells Few /HPF (NEGATIVE) 07/12/23 21:15 Urine Bacteria Trace /HPF (NEGATIVE) 07/12/23 21:15 Urine Mucus Moderate /HPF (NEGATIVE) 07/12/23 21:15 Ur Culture Indicated? No/not indicated 07/12/23 21:15 Resp Viral Panel (PCR) Cancelled 07/12/23 19:30 Resp Viral Panel (PCR) See scanned report 07/12/23 19:30 TB (QFT) Gold In Tube Negative (Negative) 07/13/23 09:08 TB Test Mitogen - Nil >10.00 IU/mL 07/13/23 09:08 TB Test Ag - Nil 1 0.02 IU/mL (0.00-0.34) 07/13/23 09:08 TB Test Ag - Nil 2 0.00 IU/mL (0.00-0.34) 07/13/23 09:08 TB Test TB -Nil 0.02 IU/mL 07/13/23 09:08 Plan (1) Bronchopneumonia: Status: Acute Plan: Continue IV abx, IV hydration, respiratory therapy, supplemental 02, pulmonary toileting, blood sugar control. (2) Abnormal chest xray: Status: Acute (3) Diabetes mellitus, insulin dependent (IDDM), controlled: Status: Acute (4) Anxiety: Status: Chronic (5) Depression: Status: Chronic (6) GERD (gastroesophageal reflux disease): Status: Chronic (7) Unexplained chronic cough: Status: Acute (8) Insomnia: Status: Acute Plan: Diazepam 30 mg at bedtime as needed insomnia.
[2023-07-18 04:56] VITALS: TEMP 97.6
[2023-07-18 07:39] LABS: BASOPHILS # (AUTO) 0.2 X10^3/uL (0.0-0.1); BASOPHILS % (AUTO) 2.7 % (0.2-1.0); EOSINOPHILS # (AUTO) 0.1 x10^3/uL (0.0-0.2); EOSINOPHILS % (AUTO) 1.1 % (0.9-2.9); HEMATOCRIT 35.5 % (36.0-47.0); LYMPHOCYTES # (AUTO) 2.8 X10^3/uL (1.3-2.9); LYMPHOCYTES % (AUTO) 35.1 % (21.0-51.0); MEAN CORPUSCULAR HEMOGLOBIN 32.4 pg (27.0-34.0); MEAN CORPUSCULAR VOLUME 95.3 fL (80.0-100.0); MEAN PLATELET VOLUME 8.5 fL (7.4-11.0); MONOCYTES # (AUTO) 0.5 x10^3/uL (0.3-0.8); MONOCYTES % (AUTO) 5.9 % (0.0-13.0); NEUTROPHILS # (AUTO) 4.5 x10^3/uL (2.2-4.8); NEUTROPHILS % (AUTO) 55.2 % (42.0-75.0); PLATELET COUNT 210 X10^3/uL (150.0-450.0); RED BLOOD COUNT 3.72 X10^6/uL (3.5-5.4); RED CELL DISTRIBUTION WIDTH 12.2 % (11.6-16.5); WHITE BLOOD COUNT 8.1 X10^3/uL (3.6-10.0)
[2023-07-18 07:53] LABS: ALANINE AMINOTRANSFERASE 33 Units/L (12-78); ALBUMIN 2.7 g/dL (3.4-5.0); ALKALINE PHOSPHATASE 63 Units/L (46-116); ASPARTATE AMINO TRANSFERASE 21 Units/L (15-37); BLOOD UREA NITROGEN 14 mg/dL (7-18); CALCIUM 8.3 mg/dL (8.5-10.1); CARBON DIOXIDE 28.3 mmol/L (21-32); CHLORIDE 107 mmol/L (98-107); COR CA(FOR HYPOALB) 9.3 mg/dL (8.5-10.1); COR NA(FOR HYPERGLY) 143 mmol/L (136-145); CREATININE 0.79 mg/dL (0.55-1.02); GLUCOSE 127 mg/dL (65-99); POTASSIUM 3.9 mmol/L (3.5-5.1); SODIUM 142 mmol/L (136-145); TOTAL PROTEIN 5.4 g/dL (6.4-8.2); eGFR NON BLACK RACES > 60 (>60)
[2023-07-18] MEDS ORDERED: LEXAPRO ONE (08:12)
[2023-07-18 09:08] LABS: ABG ALLEN TEST POS
[2023-07-18 13:28] VITALS: BP 131/60; PULSE 71; RESP 18; O2SAT 95
--- NOTE | 2023-07-20 09:10 | PCM.DCPLAN ---
DISCHARGE SUMMARY Admission Date Date of Admission: 07/12/23 Discharge Date Discharge Date: 07/18/23 Admission Diagnoses (1) Bronchopneumonia: Status: Acute (2) Abnormal chest xray: Status: Acute (3) Diabetes mellitus, insulin dependent (IDDM), controlled: Status: Acute (4) Anxiety: Status: Chronic (5) Depression: Status: Chronic (6) GERD (gastroesophageal reflux disease): Status: Chronic (7) Unexplained chronic cough: Status: Acute (8) Insomnia: Status: Acute Discharge Diagnoses Discharge Diagnosis: Resolved bronchopneumonia, Resolved abnormal chest xray, Resolved unexplained chronic cough- same as admission Discharge Medications Discharge Medications: Home Medication List fluticasone fur. 200 mcg-umeclid 62.5 mcg-vilant 25 mcg inhalat.powder (Trelegy Ellipta) 1 ea inhalation QDAY 07/12/23 [History] levocetirizine 5 mg tablet 5 mg PO QPM 07/12/23 [History] phendimetrazine tartrate 35 mg tablet 35 mg PO DAILY 07/12/23 [History] Prescriptions: Hospital Course Latest Lab Results: Laboratory Last Values WBC 8.1 X10^3/uL (3.6-10.0) 07/18/23 07: RBC 3.72 X10^6/uL (3.5-5.4) 07/18/23 07:26 Hgb 12.0 g/dL (12.0-16.0) 07/18/23 07: Hct 35.5 % (36.0-47.0) L 07/18/23 07: MCV 95.3 fL (80.0-100.0) 07/18/23 07:26 MCH 32.4 pg (27.0-34.0) 07/18/23 07:26 MCHC 34.0 g/dL (33.0-35.0) 07/18/23 07:26 RDW 12.2 % (11.6-16.5) 07/18/23 07:26 Plt Count 210 X10^3/uL (150.0-450.0) 07/18/23 07:26 MPV 8.5 fL (7.4-11.0) 07/18/23 07:26 Neut % (Auto) 55.2 % (42.0-75.0) 07/18/23 07: Lymph % (Auto) 35.1 % (21.0-51.0) 07/18/23 07: [place] % (Auto) 5.9 % (0.0-13.0) 07/18/23 07: Eos % (Auto) 1.1 % (0.9-2.9) 07/18/23 07: Baso % (Auto) 2.7 % (0.2-1.0) H 07/18/23 07:26 Neut # (Auto) 4.5 x10^3/uL (2.2-4.8) 07/18/23 07: Lymph # (Auto) 2.8 X10^3/uL (1.3-2.9) 07/18/23 07: [place] # (Auto) 0.5 x10^3/uL (0.3-0.8) 07/18/23 07: Eos # (Auto) 0.1 x10^3/uL (0.0-0.2) 07/18/23 07: Baso # (Auto) 0.2 X10^3/uL (0.0-0.1) H 07/18/23 07:26 Absolute Nucleated RBC 0.0 /100WBC 07/18/23 07:26 Sample Site [place] 07/18/23 09:04 ABG pH 7.400 (7.35-7.45) 07/18/23 09:04 ABG pCO2 42.0 mmHg (35.0-45.0) 07/18/23 09:04 ABG pO2 77.0 mmHg (80.0-100.0) L 07/18/23 09:04 ABG HCO3 26.0 mmol/L (22-26) 07/18/23 09:04 ABG O2 Saturation 95.0 % (90-100) 07/18/23 09:04 ABG Base Excess 1.0 mmol/L (-2.0-2.0) 07/18/23 09:04 [place] Test Pos 07/18/23 09:04 A-a Gradient 20.0 mmHg 07/18/23 09:04 FiO2 21.0 07/18/23 09:04 Blood Gas Comments Pt saige well elj cdn 07/18/23 09:04 Sodium 142 mmol/L (136-145) 07/18/23 07:26 Corrected Sodium 143 mmol/L (136-145) 07/18/23 07:26 Potassium 3.9 mmol/L (3.5-5.1) 07/18/23 07:26 Chloride 107 mmol/L (98-107) 07/18/23 07:26 Carbon Dioxide 28.3 mmol/L (21-32) 07/18/23 07:26 BUN 14 mg/dL (7-18) 07/18/23 07:26 Creatinine 0.79 mg/dL (0.55-1.02) 07/18/23 07:26 Est GFR (MDRD) Af Amer > 60 (>60) 07/18/23 07:26 Est GFR (MDRD) Non-Af > 60 (>60) 07/18/23 07:26 Glucose 127 mg/dL (65-99) H 07/18/23 07:26 Calcium 8.3 mg/dL (8.5-10.1) L 07/18/23 07:26 Corrected Calcium 9.3 mg/dL (8.5-10.1) 07/18/23 07:26 Magnesium 2.5 mg/dL (2.0-2.9) 07/14/23 04:39 Total Bilirubin 0.50 mg/dL (0.2-1.0) 07/18/23 07:26 AST 21 Units/L (15-37) 07/18/23 07:26 ALT 33 Units/L (12-78) 07/18/23 07:26 Alkaline Phosphatase 63 Units/L (46-116) 07/18/23 07:26 Total Protein 5.4 g/dL (6.4-8.2) L 07/18/23 07:26 Albumin 2.7 g/dL (3.4-5.0) L 07/18/23 07:26 Globulin 2.7 g/dL (2.5-4.5) 07/18/23 07:26 Albumin/Globulin Ratio 1.0 Ratio (1.1-2.1) L 07/18/23 07:26 Specimen Type Clean catch urine 07/12/23 21:15 Urine Color Dark yellow (YELLOW) 07/12/23 21:15 Urine Appearance Clear (CLEAR) 07/12/23 21:15 Urine pH 6.0 (5.0 - 8.0) 07/12/23 21:15 Ur Specific [place] 1.020 (1.000-1.030) 07/12/23 21:15 Urine Protein 1+ (NEGATIVE) 07/12/23 21:15 Urine Glucose (UA) Negative (NEGATIVE) 07/12/23 21:15 Urine Ketones Negative (NEGATIVE) 07/12/23 21:15 Urine Blood Negative (NEGATIVE) 07/12/23 21:15 Urine Nitrite Negative (NEGATIVE) 07/12/23 21:15 Urine Bilirubin Negative (NEGATIVE) 07/12/23 21:15 Urine Acetone Negative (NEGATIVE) 07/16/23 01:59 Urine Urobilinogen Normal (NORMAL) 07/12/23 21:15 Ur Leukocyte Esterase Negative (NEGATIVE) 07/12/23 21:15 Urine RBC None seen /HPF (0-3) 07/12/23 21:15 Urine WBC 0-2 /HPF (0-5) 07/12/23 21:15 Ur Squamous Epith Cells Few /HPF (NEGATIVE) 07/12/23 21:15 Urine Bacteria Trace /HPF (NEGATIVE) 07/12/23 21:15 Urine Mucus Moderate /HPF (NEGATIVE) 07/12/23 21:15 Ur Culture Indicated? No/not indicated 07/12/23 21:15 Resp Viral Panel (PCR) Cancelled 07/12/23 19:30 Resp Viral Panel (PCR) See scanned report 07/12/23 19:30 TB (QFT) Gold In Tube Negative (Negative) 07/13/23 09:08 TB Test Mitogen - Nil >10.00 IU/mL 07/13/23 09:08 TB Test Ag - Nil 1 0.02 IU/mL (0.00-0.34) 07/13/23 09:08 TB Test Ag - Nil 2 0.00 IU/mL (0.00-0.34) 07/13/23 09:08 TB Test TB -Nil 0.02 IU/mL 07/13/23 09:08 Hospital Course: This is a 53-year-old white female, patient of our private practice, who was admitted with bronchopneumonia having failed outpatient treatment. The patient had an ER x-ray suggesting a CT due to possible granulomatous disease, could not rule out TB. She denies any known history of TB or known history of TB exposure. We did admit her to a negative pressure room following infectious disease protocol. She was masked coming into the facility as well in transport. We had her on airborne precautions with AFB cultures ordered on admission, as well as [place] Gold blood test. Her TB Gold was negative, Acid fast stain and AFB culture are still pending. We administered a PPD on admission and was negative after 72 hours. Her blood and sputum cultures were negative and AIT resulted no microbes detected. She had a CT of the chest with contrast obtained on 07/13/23 showing some nodular disease recommending follow up. We obtained a chest xray on 07/14/23 that showed no acute cardiopulmonary abnormality. She had a repeat chest xray on 07/15/23 that continued to show no change or acute chest finding. She has been treated with IV abx, neb treatments since admission. On 07/15/23, we added IV steroid. She is a type 1 diabetic with insulin dependence. She has a insulin pump. Her blood sugar and kidney function have remained stable throughout stay. She did complain of insomnia and was treated with PRN sedative/hypnotic. AM labs: WBC 8.1, Hgb 12.0, BUN 14/Creatinine 0.79. Morning vitals: 140/70-79-20-97.6-93% room air. Patient states that she is feeling much improved, so we will allow her to discharge home to continue previously prescribed PO abx and PO steroids. She will need to follow up with her PCP and has an appointment scheduled for 07/25/23. Please see discharge plan for list of d ischarge medications and modifications that we made, electronic medical record for diagnostic tests and labs. The patient was instructed to return to the ER if condition changed or worsened unexpectedly.
== END 2023-07-18 14:08 | disposition home or self-care (01) | DRG 195 ==
LOC: MED/SURG 18:00
PROVIDERS: ADMIT Internal Medicine; ATTEND Internal Medicine
DX: I10 Essential (primary) hypertension; E10.65 Type 1 diabetes mellitus with hyperglycemia; J18.0 Bronchopneumonia, unspecified organism; R06.02 Shortness of breath; K21.9 Gastro-esophageal reflux disease without esophagitis; F41.8 Other specified anxiety disorders; F32.89 Other specified depressive episodes; G47.09 Other insomnia; R93.5 Abnormal findings on diagnostic imaging of other abdominal regions, including retroperitoneum; R05.3 Chronic cough; R51.9 Headache, unspecified; J45.998 Other asthma; R94.31 Abnormal electrocardiogram [ECG] [EKG]

== ENCOUNTER → 2024-05-19 11:45 | Observation (INO) ==
[2024-05-17 22:14] VITALS: BMI 38.0
[2024-05-17] MEDS: VANCOMYCIN IV *PREMIX 1.75 G/350 ML BAG 1.75 G/350 ML PIGGYBACK IV ONE (22:32)
[2024-05-17] MEDS: NS 1,000 ML IV 1,000 ML IV SCH (22:32)
[2024-05-18 06:02] LABS: BASOPHILS % (AUTO) 0.4 % (0.2-1.0); EOSINOPHILS # (AUTO) 0.1 x10^3/uL (0.0-0.2); EOSINOPHILS % (AUTO) 0.9 % (0.9-2.9); HEMATOCRIT 39.3 % (36.0-47.0); HEMOGLOBIN 13.2 g/dL (12.0-16.0); LYMPHOCYTES % (AUTO) 31.5 % (21.0-51.0); MEAN CORPUSCULAR HEMOGLOBIN 31.9 pg (27.0-34.0); MEAN CORPUSCULAR HGB CONC 33.6 g/dL (33.0-35.0); MEAN CORPUSCULAR VOLUME 94.8 fL (80.0-100.0); MEAN PLATELET VOLUME 7.8 fL (7.4-11.0); MONOCYTES # (AUTO) 0.6 x10^3/uL (0.3-0.8); MONOCYTES % (AUTO) 9.1 % (0.0-13.0); NEUTROPHILS # (AUTO) 3.7 x10^3/uL (2.2-4.8); NEUTROPHILS % (AUTO) 58.1 % (42.0-75.0); PLATELET COUNT 230 X10^3/uL (150.0-450.0); RED BLOOD COUNT 4.14 X10^6/uL (3.5-5.4); RED CELL DISTRIBUTION WIDTH 13.1 % (11.6-16.5); WHITE BLOOD COUNT 6.4 X10^3/uL (3.6-10.0)
[2024-05-18] MEDS: D50W ABBOJECT SYR IV ONE (06:08)
[2024-05-18 06:20] LABS: ALANINE AMINOTRANSFERASE 18 Units/L (12-78); ALBUMIN 3.3 g/dL (3.4-5.0); ALKALINE PHOSPHATASE 75 Units/L (46-116); ASPARTATE AMINO TRANSFERASE 16 Units/L (15-37); BLOOD UREA NITROGEN 10 mg/dL (7-18); CALCIUM 8.5 mg/dL (8.5-10.1); CARBON DIOXIDE 29.1 mmol/L (21-32); CHLORIDE 107 mmol/L (98-107); COR CA(FOR HYPOALB) 9.1 mg/dL (8.5-10.1); CREATININE 0.72 mg/dL (0.55-1.02); GLUCOSE 51 mg/dL (65-99); POTASSIUM 3.9 mmol/L (3.5-5.1); SODIUM 142 mmol/L (136-145); TOTAL PROTEIN 6.5 g/dL (6.4-8.2); eGFR NON BLACK RACES > 60 (>60)
[2024-05-18] MEDS: VANCOMYCIN IV *PREMIX 1.5 G/300 ML BAG 1.5 G/300 ML PIGGYBACK IV SCH (08:02)
[2024-05-18] MEDS: NORCO 5/325 MG TAB PO PRN (08:03)
--- NOTE | 2024-05-18 08:31 | DR.H&P ---
H&P History & Physical for Day of: H&P Date: 05/17/24 Chief Complaint Chief Complaint: abscess on stomach History of Present Illness History of Present Illness: PT IS 53 WF, DIRECT ADMIT FROM DR KELLER OFFICE WITH ABSCESS TO RIGHT LOWER ABDOMEN, ONSET >2 WEEKS AGO. PT HAS TAKEN A ROUND OF KEFLEX AND TOPICAL MUPIROCIN OINT WITHOUT IMPROVEMENT. PT HAS PMH OF TYPE I DM, HTN, OA, LUPUS, AND GERD. PT ADMITTED FOR TREATMENT AND EVALUATION OF ACUTE ILLNESS. Past Medical History Past Medical History: Anxiety, Arthritis, Depression, Diabetes and Hypertension Additional Medical History: LUPUS Past Surgical History Surgical History: Cholecystectomy and Hysterectomy Family History Family Medical History: Diabetes Mellitus and Hypertension Social History Does patient currently use any type of tobacco product: No Type of Tobacco Use: None Does any household member use tobacco: No Alcohol Use: None Drug Use: None Medications Home Medications: Home Medications Medication Instructions Recorded Confirmed Type lisinopril 5 mg tablet 1 tab PO QAM Kidney Disease 05/11/22 05/17/24 History rosuvastatin 5 mg tablet 1 tab PO QPM 05/11/22 05/17/24 History budesonide 0.5 mg/2 mL suspension 0.5 mg inhalation BID 07/08/23 05/17/24 History for nebulization ergocalciferol (vitamin D2) 1,250 1,250 mcg PO QWEEK 07/08/23 05/17/24 History mcg (50,000 unit) capsule escitalopram oxalate 20 mg tablet 20 mg PO ONCE HS 07/08/23 05/17/24 History hydroxychloroquine 200 mg tablet 200 mg PO QDAY 07/08/23 05/17/24 History ibuprofen 800 mg tablet 800 mg PO Q8H PRN 07/08/23 05/17/24 History insulin aspart U-100 100 unit/mL See Rx Instructions .Route .COMPLEX 07/08/23 07/12/23 History subcutaneous solution (Novolog U-100 Insulin aspart) montelukast 10 mg tablet 10 mg PO QPM 07/08/23 05/17/24 History omeprazole 20 mg capsule,delayed 20 mg PO QDAY 07/08/23 05/17/24 History release fluticasone fur. 200 mcg-umeclid 2 ea inhalation QDAY 07/12/23 05/17/24 History 62.5 mcg-vilant 25 mcg inhalat.powder (Trelegy Ellipta) phendimetrazine tartrate 35 mg 35 mg PO DAILY 07/12/23 05/17/24 History tablet ascorbic acid 100 mg-zinc sulfate 1 tab PO DAILY 05/17/24 05/17/24 History 200 mg tablet calcium carbonate (Calcium 600) 600 mg PO QDAY 05/17/24 05/17/24 History hydroxyzine HCl 25 mg tablet 25 mg PO QPM 05/17/24 05/17/24 History tizanidine 4 mg tablet 2 - 4 mg PO BID PRN 05/17/24 05/17/24 History Allergies Allergies Allergy/AdvReac Type Severity Reaction Status Date / Time gluten Allergy Verified 05/11/22 19:42 promethazine Allergy Verified 01/30/19 04:03 Iodinated Contrast Media AdvReac Severe ANAPHALEXIS Verified 06/30/23 11:17 [IVP DYE] REACTION shellfish derived AdvReac Severe ANAPHALEXIS Verified 05/11/22 19:42 REACTION Labs 05/18/24 05:31 05/18/24 05:31 Labs: Laboratory WBC 6.4 X10^3/uL (3.6-10.0) 05/18/24 05:31 RBC 4.14 X10^6/uL (3.5-5.4) 05/18/24 05:31 Hgb 13.2 g/dL (12.0-16.0) 05/18/24 05:31 Hct 39.3 % (36.0-47.0) 05/18/24 05:31 MCV 94.8 fL (80.0-100.0) 05/18/24 05:31 MCH 31.9 pg (27.0-34.0) 05/18/24 05:31 MCHC 33.6 g/dL (33.0-35.0) 05/18/24 05:31 RDW 13.1 % (11.6-16.5) 05/18/24 05:31 Plt Count 230 X10^3/uL (150.0-450.0) 05/18/24 05:31 MPV 7.8 fL (7.4-11.0) 05/18/24 05:31 Neut % (Auto) 58.1 % (42.0-75.0) 05/18/24 05:31 Lymph % (Auto) 31.5 % (21.0-51.0) 05/18/24 05:31 [place] % (Auto) 9.1 % (0.0-13.0) 05/18/24 05:31 Eos % (Auto) 0.9 % (0.9-2.9) 05/18/24 05:31 Baso % (Auto) 0.4 % (0.2-1.0) 05/18/24 05:31 Neut # (Auto) 3.7 x10^3/uL (2.2-4.8) 05/18/24 05:31 Lymph # (Auto) 2.0 X10^3/uL (1.3-2.9) 05/18/24 05:31 [place] # (Auto) 0.6 x10^3/uL (0.3-0.8) 05/18/24 05:31 Eos # (Auto) 0.1 x10^3/uL (0.0-0.2) 05/18/24 05:31 Baso # (Auto) 0.0 X10^3/uL (0.0-0.1) 05/18/24 05:31 Absolute Nucleated RBC 0.0 /100WBC 05/18/24 05:31 Sodium 142 mmol/L (136-145) 05/18/24 05:31 Corrected Sodium TNP 05/18/24 05:31 Potassium 3.9 mmol/L (3.5-5.1) 05/18/24 05:31 Chloride 107 mmol/L (98-107) 05/18/24 05:31 Carbon Dioxide 29.1 mmol/L (21-32) 05/18/24 05:31 BUN 10 mg/dL (7-18) 05/18/24 05:31 Creatinine 0.72 mg/dL (0.55-1.02) 05/18/24 05:31 Est GFR (MDRD) Af Amer > 60 (>60) 05/18/24 05:31 Est GFR (MDRD) Non-Af > 60 (>60) 05/18/24 05:31 Glucose 51 mg/dL (65-99) L 05/18/24 05:31 Glucose Cancelled 05/18/24 05:31 POC Glucose (mg/dL) 63 mg/dL (65-99) L 05/18/24 05:30 Calcium 8.5 mg/dL (8.5-10.1) 05/18/24 05:31 Corrected Calcium 9.1 mg/dL (8.5-10.1) 05/18/24 05:31 Total Bilirubin 0.50 mg/dL (0.2-1.0) 05/18/24 05:31 AST 16 Units/L (15-37) 05/18/24 05:31 ALT 18 Units/L (12-78) 05/18/24 05:31 Alkaline Phosphatase 75 Units/L (46-116) 05/18/24 05:31 Total Protein 6.5 g/dL (6.4-8.2) 05/18/24 05:31 Albumin 3.3 g/dL (3.4-5.0) L 05/18/24 05:31 Globulin 3.2 g/dL (2.5-4.5) 05/18/24 05:31 Albumin/Globulin Ratio 1.0 Ratio (1.1-2.1) L 05/18/24 05:31 Review of Systems Constitutional: No Symptoms Reported Eyes: No Symptoms Reported ENT: No Symptoms Reported Respiratory: No Symptoms Reported Cardiovascular: No Symptoms Reported Genitourinary: No Symptoms Reported Musculoskeletal: No Symptoms Reported Skin: Wound (ABSCESS TO RIGHT ABDOMINAL WALL) Neurological: No Symptoms Reported Physical Exam Vital Signs: Vital Signs Temperature 97.8 F Temperature 98.9 F Pulse Rate [Right] 67 Pulse Rate [Right] 68 Respiratory Rate 18 Respiratory Rate 18 Respiratory Rate 16 Blood Pressure [Right Arm] 135/62 Blood Pressure [Right Arm] 131/56 O2 Sat by Pulse Oximetry 95 O2 Sat by Pulse Oximetry 95 Oriented: Normal Eyes: Blurred Vision (CHRONIC VISION CHANGES) Ear: Normal Nose: Normal Throat: Normal Respiratory: Clear Throughout Cardiovascular: Normal Auscultation: Bowel Sounds: Normal Palpation: Normal Tenderness: RLQ Skin: Red, Tender and Wound Musculoskeletal: Normal Mood Description: Anxious Affect: Anxious Speech Pattern: Clear and Appropriate Assessment/Plan (1) Abdominal wall abscess: Status: Acute Plan: ADMIT, BC, ABD WOUND CULTURES IV HYDRATION, SURGICAL CONSULT IV VANCOMYCIN BS CONTROL, VERIFY HOME MEDICATIONS PAIN CONTROL (2) GERD (gastroesophageal reflux disease): Status: Chronic (3) Diabetes mellitus type 1: Status: Chronic (4) Depression: Status: Chronic
[2024-05-18] MEDS: XYLOCAINE 1 % (PLAIN) ONE (09:15)
[2024-05-18] MEDS: DUONEB 0.5 MG/3 MG (3 mL) NEB SCH (09:29)
[2024-05-18] MEDS: PULMICORT NEB TX 0.5 MG NEB SCH (09:29)
[2024-05-18] MEDS: ZESTRIL TAB 5 MG PO SCH (10:03)
[2024-05-18] MEDS: PLAQUENIL PO SCH (10:03)
[2024-05-18] MEDS: PriLOSEC PO SCH (10:04)
[2024-05-18] MEDS: MORPHINE SULFATE INJ 2 MG INJ IVP PRN (10:32)
[2024-05-18] MEDS: SINGULAIR TAB 10 MG PO SCH (21:09)
[2024-05-18] MEDS: COLACE CAP 100 MG PO SCH (21:09)
[2024-05-18] MEDS: LEXAPRO PO SCH (21:10)
[2024-05-18] MEDS: CRESTOR TAB 10 MG PO SCH (21:11)
[2024-05-18] MEDS: SNACK - Diabetic Appropriate PO SCH (22:49)
[2024-05-19 07:14] LABS: BASOPHILS % (AUTO) 0.6 % (0.2-1.0); EOSINOPHILS % (AUTO) 1.1 % (0.9-2.9); HEMATOCRIT 34.7 % (36.0-47.0); LYMPHOCYTES # (AUTO) 1.3 X10^3/uL (1.3-2.9); MEAN CORPUSCULAR HEMOGLOBIN 32.6 pg (27.0-34.0); MEAN CORPUSCULAR HGB CONC 34.5 g/dL (33.0-35.0); MEAN CORPUSCULAR VOLUME 94.4 fL (80.0-100.0); MONOCYTES # (AUTO) 0.3 x10^3/uL (0.3-0.8); MONOCYTES % (AUTO) 6.4 % (0.0-13.0); NEUTROPHILS # (AUTO) 2.3 x10^3/uL (2.2-4.8); NEUTROPHILS % (AUTO) 57.9 % (42.0-75.0); PLATELET COUNT 205 X10^3/uL (150.0-450.0); RED BLOOD COUNT 3.68 X10^6/uL (3.5-5.4); RED CELL DISTRIBUTION WIDTH 12.9 % (11.6-16.5); WHITE BLOOD COUNT 3.9 X10^3/uL (3.6-10.0)
[2024-05-19 07:29] LABS: ALANINE AMINOTRANSFERASE 19 Units/L (12-78); ALBUMIN 2.9 g/dL (3.4-5.0); ALKALINE PHOSPHATASE 69 Units/L (46-116); ASPARTATE AMINO TRANSFERASE 15 Units/L (15-37); BLOOD UREA NITROGEN 10 mg/dL (7-18); CALCIUM 8.3 mg/dL (8.5-10.1); CARBON DIOXIDE 26.6 mmol/L (21-32); CHLORIDE 108 mmol/L (98-107); COR CA(FOR HYPOALB) 9.2 mg/dL (8.5-10.1); CREATININE 0.63 mg/dL (0.55-1.02); GLUCOSE 109 mg/dL (65-99); POTASSIUM 4.4 mmol/L (3.5-5.1); SODIUM 140 mmol/L (136-145); TOTAL PROTEIN 5.8 g/dL (6.4-8.2); eGFR NON BLACK RACES > 60 (>60)
[2024-05-19 08:29] VITALS: RESP 20
[2024-05-19 08:53] VITALS: BP 126/60; PULSE 67; TEMP 97.8; O2SAT 97
[~2024-05-19 11:45] MED LIST: BENADRYL INJ 50 MG VIAL IVP PRN; D50W ABBOJECT SYR ONE; LEXAPRO ONE; NovoLIN R (or HumuLIN R) SUBCUT PRN; PATIENT'S HOME MEDICATION (Fluticasone-Umeclidin-Vilanter [Trelegy Ellipta] 200-62.5-25 mc IN SCH; PHARMACY COMMENT IV NR; PHARMACY CONSULT - VANCOMYCIN XX SCH; PULMICORT NEB TX 0.5 MG NEB SCH; VANCOMYCIN HCL 500 MG, VANCOMYCIN HCL 1 G in D5W 250 ML IV 250 ML IV SCH
== END | disposition home or self-care (01) ==
LOC: MED/SURG
PROVIDERS: ADMIT Internal Medicine; ATTEND Internal Medicine
DX: F41.8 Other specified anxiety disorders; B95.62 Methicillin resistant Staphylococcus aureus infection as the cause of diseases classified elsewhere; Z16.12 Extended spectrum beta lactamase (ESBL) resistance; L02.211 Cutaneous abscess of abdominal wall; R10.84 Generalized abdominal pain; F32.89 Other specified depressive episodes; E10.649 Type 1 diabetes mellitus with hypoglycemia without coma; Z79.4 Long term (current) use of insulin; L03.311 Cellulitis of abdominal wall; Z16.23 Resistance to quinolones and fluoroquinolones; K21.9 Gastro-esophageal reflux disease without esophagitis; I10 Essential (primary) hypertension; Z16.29 Resistance to other single specified antibiotic